=== PATIENT | female | born 1945 | race Caucasian/White ===

== ENCOUNTER 2020-08-28 10:52 | Observation (INO) | payer MEDICARE, SELFPAY ==
[2020-08-28] VITALS (8 sets, daily range): BP systolic 111–155; BP diastolic 52–87; PULSE 64–89; RESP 16–20; TEMP 36.3–36.9; O2SAT 99–100; BMI 32.8
--- NOTE | ~2020-08-28 | CT_ITS ---
EXAMINATION: CT abdomen pelvis wo con DATE: 08/28/2020 12:44 INDICATION: Kidney stone TECHNIQUE: Computed tomography (CT) of the abdomen and pelvis was performed without intravenous contr ast. Automated exposure control and iterative reconstruction technique were employed. Exam dose: 300 .35 mGy-cm total exam DLP. COMPARISON: None. FINDINGS: Status post right mastectomy. Borderline heart size. No pericardial or pleural effusion. The liver, gallbladder, spleen are unremarkable. No bile duct or pancreatic duct dilatation. There are numerous calcifications in the right upper quadrant in the lisbeth hepatis and peripancreatic and periduodenal area, which may represent calcified nodes. Some pancreatic calcifications consisten t with chronic pancreatitis are not excluded. Normal morphology of the adrenal glands. No renal space occupying mass lesion is evident on this limited noncontrast examination. No right urinary tract calculus or right-sided hydroureteronephrosis. There is mild left perinephric stranding and moderate left hydroureteronephrosis secondary to a dista l left ureteral approximately 2.6 x 4.5 mm calculus. Diverticulosis of the sigmoid and descending colon. No CT evidence of diverticulitis. The urinary bladder is evacuated, unremarkable. Status post hysterectomy. There is atherosclerotic calcification of the abdominal aorta but no aneurysm. No intraperitoneal or retroperitoneal or pelvic mass lesion or adenopathy or ascites. Hemangioma of the L2 and to a lesser extent L3 vertebral bodies. Severe degenerative disease at L5-S1. No suspicious osteolytic or osteoblastic lesions. IMPRESSION: 2.6 x 4.5 mm distal left ureteral calculus with moderate left hydroureteronephrosis Diverticulosis of the left colon; no CT evidence of diverticulitis Multiple right upper quadrant calcifications which may be calcified nodes and/or calcification to chr onic pancreatitis Status post right mastectomy Status post hysterectomy Reviewed, dictated and finalized at [facility]. Reviewed, dictated and finalized at location [facility]. 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
--- NOTE | ~2020-08-28 | XR_ITS ---
EXAMINATION: XR retrograde pyelogram LT EXAM DATE: 08/29/2020 14:55 INDICATION: Left-sided stone extraction. TECHNIQUE: Fluoroscopy used during XR retrograde pyelogram LT performed by Dr. Ar Martino MD . The DAP for this procedure was 172 radcm2. Cine run(s) available for review. FINDINGS: The left ureter was cannulated and injected. A filling defect identified in the distal asp ect of the left ureter, could be the elongated stone seen on CT from 08/28/2020. Contrast freely made at in retrograde fashion to the calyces which are unremarkable. Wire, catheter is identified in the c alyces, ureter respectively later during exam. Correlate with procedure note. IMPRESSION: Fluoroscopy used during XR retrograde pyelogram LT. Reviewed, dictated and finalized at location [facility]. 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
[2020-08-28 11:13] LABS: Basophils Absolute Auto 0.1 K/mm3 (0.0-0.1); Basophils Percent Auto 0.7 % (0.2-1.2); Eosinophils Absolute Auto 0.1 K/mm3 (0-0.3); Eosinophils Percent Auto 1.1 % (0-4.4); Hematocrit 42.6 % (37.0-47.0); Hemoglobin 14.3 g/dL (12.0-15.0); Immature Granulocyte Absolute 0.03 K/mm3 (0.00-0.031); Immature Granulocyte Percent A 0.4 % (0-0.5); Lymphocytes Absolute Auto 1.62 K/mm3 (0.9-3.2); Lymphocytes Percent Auto 22.1 % (18.3-44.2); Mean Corpuscular HGB Conc 33.6 g/dl (32-36); Mean Corpuscular Hemoglobin 31.6 pg (26-34); Mean Corpuscular Volume 94.2 fl (80-100); Mean Platelet Volume 10.5 fl (7.4-10.4); Monocytes Absolute Auto 0.8 K/mm3 (0.1-0.6); Monocytes Percent Auto 10.5 % (2.6-8.5); Neutrophils Absolute Auto 4.8 K/mm3 (1.3-6.7); Neutrophils Percent Auto 65.2 % (45.5-73.1); Platelet Count Result 165 k/mm3 (150-375); Red Blood Count 4.52 M/mm3 (4.2-5.4); Red Cell Distribution Width 13.1 % (11.5-14.5); White Blood Count 7.3 K/mm3 (4.5-10.0)
[2020-08-28 11:25] LABS: Alanine Aminotransferase 15 U/L (4-35); Albumin Level 4.3 g/dL (3.5-5.1); Alkaline Phosphatase 96 U/L (38-126); Anion Gap 8 mmol/L (8-16); Aspartate Amino Transferase 29 U/L (14-36); Bilirubin,Total 0.5 mg/dL (0.2-1.3); Blood Urea Nitrogen 18 mg/dL (7-17); Calcium 9.4 mg/dL (8.4-10.2); Carbon Dioxide 27 mmol/L (22-30); Chloride 105 mmol/L (98-107); Estimated CRCL calculation 59 ml/min; Estimated Glomerular Filt Rate > 60; Glucose 100 mg/dL (65-105); Lipase 115 U/L (23-300); Potassium 4.2 mmol/L (3.4-5.0); Sodium 140 mmol/L (137-145)
[2020-08-28 12:15] LABS: Add Urine Microscopic? YES; Appearance Urine Cloudy (Clear); Bilirubin Urine 1+ (Negative); Blood Urine 3+ (Negative); Calcium Oxalate Crystals Urine Many /hpf; Color Urine Yellow (Yellow); Glucose Urine UA Negative (Negative); Ketones Urine Negative (Negative); Leukocyte Esterase Ur Trace LEU/UL (Negative); Mucus Urine Moderate /lpf; Nitrate Urine Negative (Negative); Protein Urine 1+ mg/dL (Negative); RBC Urine >75 /hpf (0-2); Specific Grav Ur 1.025 (1.001-1.035); Squamous Epithelial Cell Urine Moderate /hpf (Few); Urobilinogen Urine Negative mg/dL (<2.0); WBC Urine 21-30 /hpf
[2020-08-28] MEDS: ONDANSETRON INJ 4 MG/2 ML VIAL IV PUSH (12:33)
[2020-08-28] MEDS: FAMOTIDINE 20 MG/2 ML VIAL IV PUSH ×2 (12:33→22:30)
[2020-08-28] MEDS: MORPHINE SULFATE (*CRX) 4 MG/ML INJ IV PUSH (13:27)
--- NOTE | 2020-08-28 14:17 | ED.GENADULT ---
HPI - General Adult General Chief complaint: Abdominal Pain Stated complaint: abd pain Time Seen by Provider: 08/28/20 12:00 Source: patient Mode of arrival: ambulatory Limitations: no limitations History of Present Illness HPI narrative: Patient is a 75-year-old female who presents with left flank pain that began over the last couple of days initially thought she had urinary symptoms with frequency urgency patient on arrival to emergency department notes that the pain increased today is a sharp stabbing pain that is intermittent in nature denies similar occurrence in the past denies any fever vomiting or other complaints at this time has not taken anything for her symptoms Related Data Home Medications Medication Instructions Recorded Confirmed methocarbamol mg 08/28/20 pravastatin 08/28/20 Allergies Allergy/AdvReac Type Severity Reaction Status Date / Time primidone Allergy Anaphylactic Verified 08/28/20 11:03 Shock Review of Systems Review of Systems: All systems reviewed & are unremarkable except as noted in HPI and below PMFSH Past Medical History Medical History (Updated 08/28/20 @ 14:22 by Prateek Finley PA-C) Hyperlipidemia Surgical History Surgical History (Updated 08/28/20 @ 14:19 by Prateek Finley PA-C) H/O hysterectomy for benign disease Social History Social History (Updated 08/28/20 @ 14:19 by Prateek Finley PA-C) Smoking status: Never smoker Exam Narrative: Exam Narrative: GENERAL: Ill-appearing, well-nourished, uncomfortable and in no acute distress. HEAD: Normocephalic, atraumatic. EYES: PERRLA and EOMI. ENT: Nares clear, no rhinorrhea or epistaxis. Mucous membranes moist. CHEST: Clear to auscultation. No respiratory distress. No wheezes rales or rhonchi HEART: Regular rate and rhythm. No murmur heard. Normal peripheral pulses. ABDOMEN: Soft, nontender, nondistended EXTREMITIES: Normal range of motion. No edema. SKIN: Warm, dry, no rash. NEURO: No focal deficits. Alert and oriented x3. PSYCH: Normal mood and affect. Course Course Emergency Course: Patient evaluated emergency department found to have urolithiasis discussion was made with urology patient will be placed in hospital overnight for plans to remove tomorrow the stone patient afebrile nontoxic-appearing still having pain despite fluids and medications also given antibiotics patient will be admitted to the hospitalist with urological consult patient otherwise in no distress Consultations Consultation #1: Discussed case with urologist who would like the patient admitted with plans to remove the stone tomorrow Rocephin for antibiotic n.p.o. at midnight Date: 08/28/20 Time: 14:21 Consultation #2: Discussed case with hospitalist who is agreed to accept the patient Date: 08/28/20 Time: 14:43 Vital Signs Vital signs: Vital Signs Temperature 97.4 F L 08/28/20 11:00 Pulse Rate 67 08/28/20 11:00 Respiratory Rate 20 08/28/20 11:00 Blood Pressure 137/87 08/28/20 11:00 Pulse Oximetry 100 08/28/20 11:00 Temperature 97.4 F L 08/28/20 13:57 Pulse Rate 70 08/28/20 13:28 Respiratory Rate 18 08/28/20 13:28 Blood Pressure 155/72 H 08/28/20 13:28 Pulse Oximetry 100 08/28/20 13:28 Medical Decision Making [facility] Narrative Medical decision making narrative: Patient will be admitted for urolithiasis Vital Signs Vital Signs: Vital Signs Temperature 97.4 F L 08/28/20 11:00 Pulse Rate 67 08/28/20 11:00 Respiratory Rate 20 08/28/20 11:00 Blood Pressure 137/87 08/28/20 11:00 Pulse Oximetry 100 08/28/20 11:00 Temperature 97.4 F L 08/28/20 13:57 Pulse Rate 70 08/28/20 13:28 Respiratory Rate 18 08/28/20 13:28 Blood Pressure 155/72 H 08/28/20 13:28 Pulse Oximetry 100 08/28/20 13:28 Lab Data Result diagrams: 08/28/20 11:08 08/28/20 11:08 Labs: Lab Results 08/28/20 08/28/20 08/28/20 Range/Units 11:08 11:08 12:02
[2020-08-28] MEDS: KETOROLAC 15 MG/ML VIAL (*BKC) 10 MG IV PUSH (14:29)
--- NOTE | 2020-08-28 17:55 | ADMGEN ---
This patient, Marybeth Whittaker, was admitted to 2 Medical Room 250-. Patient/family oriented to hospital policies and general routines including ID bracelet, bed and alarms, visiting hours, pain management, procedures, bathroom and other care routines, personal items, smoking policy, room service/diet, and visiting hours. Information on how to activate the Rapid Response Team has been discussed. Patient/Family are encouraged to report perceived risks to care and to ask questions if they do not understand what they are told or what they should do.
[2020-08-28] MEDS: LACTATED RINGERS 1,000 ML 75 ML IV CONT (20:34)
--- NOTE | 2020-08-28 23:23 | PM.IMHP ---
H&P: HPI History of Present Illness Date/Time: 08/28/20 23:23 Chief Complaint: Left flank pain Narrative: Marybeth Whittaker is a 75 year old female has no prior history of having any kidney stones. The patient has had a history of hysterectomy in the past. She developed some left flank pain yesterday. The patient said that it felt as if it was a female problem but she knew it was not because she had a hysterectomy in the past. The patient had no nausea or vomiting. The patient felt like she may have a urinary tract infection. Her pain was sharp and stabbing and intermittent. She denied any fever chills. She has cervical dystonia and receives Botox for that. Patient was positive for a UTI. She had RBCs greater than 75. Patient was started on Rocephin. CT of the abdomen was read as a 2. 6 by 4.5 mm distal left ureteral calculus with moderate left hydroureteronephrosis. Diverticulosis of the left colon no CT evidence of diverticulitis. Multiple right upper quadrant calcifications which may be calcified nodes and/or calcification of chronic pancreatitis. Status post right mastectomy. Status post hysterectomy. Urology has been consulted. The patient was given IV Tylenol, Zofran, Pepcid, morphine, Toradol, and ceftriaxone. The patient is being admitted to observation on the date of service of 08/28/2019 Review of Systems Review of Systems: All systems reviewed & are unremarkable except as noted in HPI and below Constitutional: Constitutional: Reports as per HPI and Reports no additional constitutional complaints Eyes: Eyes: Reports as per HPI and Reports no additional eye complaints ENT: Reports system reviewed and no additional complaints, except as documented and Reports Normal hearing present Cardiovascular: Cardiovascular: Reports no additional cardiovascular complaints Respiratory: Respiratory: Reports no additional respiratory complaints and Reports no additional respiratory complaints Gastrointestinal: Gastrointestinal: Reports as per HPI and Reports no additional gastrointestinal complaints Musculoskeletal: Musculoskeletal: Reports no additional musculoskeletal complaints Integumentary/Breasts: Skin/Breast: Reports system reviewed and no additional complaints, except as docu and Reports as per HPI Neurologic: Reports system reviewed and no additional complaints, except as documented, Reports as per HPI and Reports Normal hearing present Psychiatric: Psychiatric: Reports no additional psychiatric complaints and Reports as per HPI Endocrine: Endocrine: Reports no additional endocrine complaints Hematologic/Lymphatic: Hematologic/Lymphatic: Reports no additional hematologic/lymphatic complaints Allergic/Immunologic: Allergic/Immunologic: Reports no additional allergic/immunologic complaints PMFSH Past Medical History Medical History (Updated 08/28/20 @ 23:40 by Vaishali Silva NP) Diverticulosis Dystonia Cervical Hepatitis C Cleared History of removal of breast implant Hyperlipidemia Surgical History Surgical History (Updated 08/28/20 @ 23:35 by Vaishali Silva NP) H/O hysterectomy for benign disease History of 3 sections History of appendectomy History of cataract extraction History of partial knee replacement Hx of breast implant Which were subsequently removed Family History Family History Father Malignant neoplasm of prostate Throat cancer Mother Pancreatic cancer Sibling Breast cancer Social History Social History (Updated 08/28/20 @ 23:37 by Vaishali Silva NP) Social History: 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 She is . She has 3 children. Her children are her durable power recyclable materials collector for healthcare. She desires to be a full code. His lifelong nonsmoker. Does not drink alcohol or use illicit drugs. Smoking status: Never smoker Second hand tobacco sm
[2020-08-29] VITALS (15 sets, daily range): BP systolic 107–149; BP diastolic 55–76; PULSE 63–100; RESP 12–20; TEMP 36.2–37.2; O2SAT 90–100
[2020-08-29 05:09] LABS: Basophils Absolute Auto 0.1 K/mm3 (0.0-0.1); Basophils Percent Auto 0.7 % (0.2-1.2); Eosinophils Absolute Auto 0.1 K/mm3 (0-0.3); Eosinophils Percent Auto 1.3 % (0-4.4); Hematocrit 38.7 % (37.0-47.0); Hemoglobin 12.9 g/dL (12.0-15.0); Immature Granulocyte Absolute 0.03 K/mm3 (0.00-0.031); Immature Granulocyte Percent A 0.4 % (0-0.5); Lymphocytes Absolute Auto 1.57 K/mm3 (0.9-3.2); Lymphocytes Percent Auto 20.9 % (18.3-44.2); Mean Corpuscular HGB Conc 33.3 g/dl (32-36); Mean Corpuscular Hemoglobin 31.6 pg (26-34); Mean Corpuscular Volume 94.9 fl (80-100); Mean Platelet Volume 10.9 fl (7.4-10.4); Monocytes Percent Auto 12.8 % (2.6-8.5); Neutrophils Absolute Auto 4.8 K/mm3 (1.3-6.7); Neutrophils Percent Auto 63.9 % (45.5-73.1); Platelet Count Result 141 k/mm3 (150-375); Red Blood Count 4.08 M/mm3 (4.2-5.4); White Blood Count 7.5 K/mm3 (4.5-10.0)
[2020-08-29 05:24] LABS: Anion Gap 4 mmol/L (8-16); Blood Urea Nitrogen 23 mg/dL (7-17); Calcium 8.8 mg/dL (8.4-10.2); Carbon Dioxide 27 mmol/L (22-30); Chloride 108 mmol/L (98-107); Estimated CRCL calculation 34 ml/min; Estimated Glomerular Filt Rate 40; Glucose 91 mg/dL (65-105); Potassium 4.2 mmol/L (3.4-5.0); Sodium 139 mmol/L (137-145)
--- NOTE | 2020-08-29 07:59 | WPDANESEPPF ---
Anes - Initial Pre Proc Eval Procedure: Operation Date: 08/29/20 13:00 Proposed Procedures p Cystoscopy,Left Ureteroscopy With Stone Extraction - Ar Martino MD Date/Time: 08/29/20 07:59 Surgeon: Dianelys Orourke MD Pre Op Diagnosis: urolithiasis/uti Patient Data Age: 75 Gender: F Height: 1.6 m Weight: 83.9 kg Last Vital Signs Temp 36.6 C 08/29/20 05:42 Pulse 63 08/29/20 05:42 Resp 16 08/29/20 05:42 BP 107/55 L 08/29/20 05:42 Pulse Ox 97 08/29/20 05:42 Allergies Allergy/AdvReac Type Severity Reaction Status Date / Time primidone Allergy Severe Anaphylactic Verified 08/29/20 08:02 Shock Home Medications Medication Instructions Recorded Confirmed Type methocarbamol 750 mg PO DAILY 08/28/20 08/28/20 History pravastatin 40 mg PO DAILY 08/28/20 08/28/20 History Laboratory Tests 08/28/20 08/28/20 08/28/20 11:08 11:08 12:02 WBC 7.3 K/mm3 K/mm3 (4.5-10.0) RBC 4.52 M/mm3 M/mm3 (4.2-5.4) Hgb 14.3 g/dL g/dL (12.0-15.0) Hct 42.6 % % (37.0-47.0) MCV 94.2 fl fl (80-100) MCH 31.6 pg pg (26-34) MCHC 33.6 g/dl g/dl (32-36) RDW 13.1 % % (11.5-14.5) Plt Count 165 k/mm3 k/mm3 (150-375) MPV 10.5 fl H fl (7.4-10.4) Immature Gran % (Auto) 0.4 % % (0-0.5) Neut % (Auto) 65.2 % % (45.5-73.1) Lymph % (Auto) 22.1 % % (18.3-44.2) [place] % (Auto) 10.5 % H % (2.6-8.5) Eos % (Auto) 1.1 % % (0-4.4) Baso % (Auto) 0.7 % % (0.2-1.2) Lymph # (Auto) 1.62 K/mm3 K/mm3 (0.9-3.2) [place] # (Auto) 0.8 K/mm3 H K/mm3 (0.1-0.6) Eos # (Auto) 0.1 K/mm3 K/mm3 (0-0.3) Baso # (Auto) 0.1 K/mm3 K/mm3 (0.0-0.1) Abs Immat Gran (auto) 0.03 K/mm3 K/mm3 (0.00-0.031) Absolute Neuts (auto) 4.8 K/mm3 K/mm3 (1.3-6.7) Absolute Nucleated RBC 0.0 K/mm3 K/mm3 (0.0-0.012) Nucleated RBC % 0.0 % % (0.0-0.2) Sodium 140 mmol/L mmol/L (137-145) Potassium 4.2 mmol/L mmol/L (3.4-5.0) Chloride 105 mmol/L mmol/L (98-107) Carbon Dioxide 27 mmol/L mmol/L (22-30) Anion Gap 8 mmol/L mmol/L (8-16) BUN 18 mg/dL H mg/dL (7-17) Creatinine 0.70 mg/dL mg/dL (0.7-1.0) Estim Creat Clear Calc 59 ml/min ml/min Estimated GFR > 60 (59 - ) Glucose 100 mg/dL mg/dL (65-105) Calcium 9.4 mg/dL mg/dL (8.4-10.2) Total Bilirubin 0.5 mg/dL mg/dL (0.2-1.3) AST 29 U/L U/L (14-36) ALT 15 U/L U/L (4-35) Alkaline Phosphatase 96 U/L U/L (38-126) Total Protein 8.0 g/dL g/dL (6.3-8.2) Albumin 4.3 g/dL g/dL (3.5-5.1) Lipase 115 U/L U/L (23-300) Urine Color Yellow (Yellow) Urine Appearance Cloudy H (Clear) Urine pH 5.0 (5.0-9.0) Ur Specific [place] 1.025 (1.001-1.035) Urine Protein 1+ mg/dL H mg/dL (Negative) Urine Glucose (UA) Negative mg/dL mg/dL (Negative) Urine Ketones Negative mg/dL mg/dL (Negative) Ur Blood (Man) 3+ H (Negative) Urine Nitrate Negative (Negative) Urine Bilirubin 1+ H (Negative) Urine Urobilinogen Negative mg/dL mg/dL (<2.0) Leukocyte Esterase Rfl Trace MEGGAN/UL H MEGGAN/UL (Negative) Urine RBC >75 /hpf H /hpf (0-2) Urine WBC 21-30 /hpf H /hpf Ur Squamous Epith Cells Moderate /hpf H /hpf (Few) Calcium Oxalate Crystal Many /hpf /hpf (None) Urine Mucus Moderate /lpf H /lpf 08/29/20 08/29/20 04:58 04:58 WBC 7.5 K/mm3 K/mm3 (4.5-10.0) RBC 4.08 M/mm3 L M/mm3 (4.2-5.4) Hgb 12.9 g/dL g/dL (12.0-15.0) Hct 38.7 % % (37.0-47.0) MCV
--- NOTE | 2020-08-29 08:17 | WPDURCON ---
Assessment and Plan Assessment and plan (1) Left ureteral stone: Code(s): N20.1 - Calculus of ureter Status: Acute Assessment and Plan: Plan for left ureteroscopy with stone extraction today. Jay Jay understands risks of bleeding, infection, inability to move the stone, damage to the urinary tract. She agrees to proceed (2) Abnormal urinalysis: Code(s): R82.90 - Unspecified abnormal findings in urine Status: Acute Assessment and Plan: Highly contaminated epithelial cells and mucus. Clinically no signs of infection. She has been on broad-spectrum antibiotics while an inpatient. Urology Consult Note HPI Date Seen: 08/29/20 Requesting Physician: Dianelys Orourke MD Primary Care Provider: Barron Santana, Consult Narrative Narrative: Marybeth Whittaker is a 75 year old female with no prior history of stone disease. She had onset of left flank pain on Saturday. He was intermittently over the weekend. Finally on Saturday night she presented to the emergency room. She was diagnosed with a 4 mm distal left ureteral stone. She endorsed nausea without vomiting. She has no fevers. She has no chills. She has no dysuria. She has no visible blood in the urine. She has no signs of urinary tract infection. She does have an abnormal urinalysis, but it is highly contaminated. She does not clinically have an infection. She would like intervention for her stone. We discussed ureteroscopy and will proceed to this today. If all goes well she can likely be discharged home of post procedure. Review of Systems Review of Systems: All systems reviewed & are unremarkable except as noted in HPI and below PMFSH Past Medical History Medical History (Updated 08/29/20 @ 10:14 by Ar Martino MD) Diverticulosis Dystonia Cervical Hepatitis C Cleared History of removal of breast implant Hyperlipidemia Surgical History Surgical History (Updated 08/28/20 @ 23:35 by Vaishali Silva NP) H/O hysterectomy for benign disease History of 3 sections History of appendectomy History of cataract extraction History of partial knee replacement Hx of breast implant Which were subsequently removed Family History Family History Father Malignant neoplasm of prostate Throat cancer Mother Pancreatic cancer Sibling Breast cancer Social History Social History (Updated 08/28/20 @ 23:37 by Vaishali Silva NP) Social History: 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 She is . She has 3 children. Her children are her durable power deputy prosecuting attorney for healthcare. She desires to be a full code. His lifelong nonsmoker. Does not drink alcohol or use illicit drugs. Smoking status: Never smoker Second hand tobacco smoke exposure: No Alcohol intake: current Drinks per week: 1 Substance use: never Meds Home Medications and Allergies Home Medications Medication Instructions Recorded Confirmed Type methocarbamol 750 mg PO DAILY 08/28/20 08/28/20 History pravastatin 40 mg PO DAILY 08/28/20 08/28/20 History Allergies Allergy/AdvReac Type Severity Reaction Status Date / Time primidone Allergy Severe Anaphylactic Verified 08/29/20 08:02 Shock Vital Signs Vital Signs - 24 hr 08/28/20 11:00 08/28/20 13:03 08/28/20 13:28 Temperature 97.4 F L 97.4 F L Pulse Rate 67 70 Respiratory Rate 20 18 Blood Pressure 137/87 155/72 H Pulse Oximetry 100 100 08/28/20 13:57 08/28/20 14:59 08/28/20 16:49 Temperature 97.4 F L 97.4 F L Pulse Rate 89 Respiratory Rate 18 Blood Pressure 133/63 Pulse Oximetry 99 08/28/20 17:55 08/28/20 20:00 08/29/20 00:42 Temperature 98.4 F 98.1 F Pulse Rate 73 64 100 Respiratory Rate 16 16 20 Blood Pressure 142/57 H 111/52 L Pulse Oximetry 100 100 90 08/29/20 02:00 08/29/20 04:00 08/29/20 05:42 Temper
[2020-08-29] MEDS: FAMOTIDINE 20 MG/2 ML VIAL IV PUSH (09:01)
[2020-08-29] MEDS: LACTATED RINGERS 1,000 ML 75 ML IV CONT (09:14)
[2020-08-29] MEDS: methocarbamoL 750 MG TABLET PO (09:29)
--- NOTE | 2020-08-29 10:19 | WPDHPUPDATE1 ---
History and Physical Update Update Date/Time: 08/29/20 10:19 History and Physical has been reviewed, including an updated exam of the patient. There are NO changes in the patient's condition. Risks, benefits, and alternatives have been discussed and questions answered. Patient agrees to proceed with procedure.
--- NOTE | 2020-08-29 11:00 | PC.NURSE ---
Report called to [place] RN Preop.
--- NOTE | 2020-08-29 13:03 | PC.NURSE ---
To OR via bed. Voiding.Bedside report given to Martin KNAPP preop.
[2020-08-29] MEDS: LACTATED RINGERS 1,000 ML 30 ML IV CONT (13:32)
[2020-08-29] MEDS: LIDOCAINE HCL 2% GEL UROJET 10 ML PKG MUCOUS MEM (14:47)
--- NOTE | 2020-08-29 14:56 | P.OP_ITS ---
Procedure Note - Detailed Date of procedure: 08/29/20 Pre-op diagnosis: urolithiasis/uti Left distal ureteral stone Post-op diagnosis: same Procedure performed: Cystoscopy, left retrograde pyelogram, left ureteroscopy with stone extraction Description of procedure: She was correctly identified. Informed consent obtained. She from the operating room. She was given general anesthesia. She was prepped and draped in a sterile fashion. She was placed in dorsal lithotomy position. She was already on antibiotics. Cystoscopy revealed a normal appearing bladder. I did a retrograde pyelogram on the left. There is a distal stone present. There is a mild proximal hydronephrosis. I placed a guidewire to the kidney. I dilated the ureter with the 8 dilator. I performed ureteroscopy. The stone was encountered. It was extracted with the basket. I reperformed ureteroscopy up to the mid ureter. There is no other stones. There is minimal irritation of the ureter. I elected to not leave ureteral stent. Bl adder was drained. She was awakened and transferred to PACU in stable condition. Anesthesia: GLMA Surgeon: Ar Martino MD Estimated blood loss (mL): 0 Drains: No Packing: No Pathology: yes (Stone) Complications: No immediate complications Condition: stable Disposition: PACU
--- NOTE | 2020-08-29 15:59 | PC.NURSE ---
Returned from OR via bed. Voiding without difficulty.
--- NOTE | 2020-08-29 16:43 | PM.IMPN ---
Progress Note: A&P Assessment and Plan (1) Left ureteral stone: Code(s): N20.1 - Calculus of ureter Status: Acute Assessment and Plan: S/p retrieval by Urology Appreciate Urology note (2) UTI (urinary tract infection): Code(s): N39.0 - Urinary tract infection, site not specified Status: Acute Assessment and Plan: Continue Rocephine. (3) Dystonia: Code(s): G24.9 - Dystonia, unspecified Status: Chronic Assessment and Plan: On Methocarbamol Follow up in the outpatient setting. Subjective Date/time seen: 08/29/20 16:43 I feel fine my pain is well controlled Review of Systems Review of Systems: Narrative: nephritic colic. Constitutional: Comments: no fevers, no rigors, no chills. ENT: Comments: no nasal congestion. Cardiovascular: Comments: no chest pain, no pnd, no orthopnea. Respiratory: Comments: no sob, no cough. Gastrointestinal: Comments: no n/v/diarrhea Musculoskeletal: Comments: no joint pain. Integumentary/Breasts: Comments: no rashes Neurologic: Comments: neck dystonia. Exam Narrative: Exam Narrative: Sitting in bed. Const: General: comfortable, no acute distress, alert and Physically active Nutritional Appearance: well nourished Orientation/consciousness: patient oriented x3 HENMT: Head: normal to inspection and normocephalic Ears: hearing grossly normal bilaterally General nose exam: Normal external nose present Face and sinus: normal facial exam Eyes: General: appearance normal, both eyes and all related structures Pupils: Equal, round and reactive pupils present EOM: EOMs intact bilaterally Neck: Neck: no lymphadenopathy, supple and no JVD Resp: Auscultation: clear to auscultation bilaterally Cardio: Jugular venous distension: no JVD Rate: regular rate Rhythm: regular rhythm GI: GI Palp: Yes Soft to palpation and Yes No hepatosplenomegaly present Skin: Rashes: no rashes Neuro: General: patient oriented x3 and CN's II-XI intact bilaterally Cranial nerves: Yes CN's II-XII intact bilaterally, Yes Equal, round and reactive pupils present and Yes Other cranial nerve findings present (neck dystonia.) Cognition (Neuro): normal cognition Speech: normal speech Motor exam (neuro): 5/5 motor strength present throughout Extrem: General: no pedal edema Objective Data Vital Signs Vital Signs: Vital Signs - 24 hr 08/28/20 16:49 08/28/20 17:55 08/28/20 20:00 Temperature 98.4 F 98.1 F Pulse Rate 89 73 64 Respiratory Rate 18 16 16 Blood Pressure 133/63 142/57 H 111/52 L Pulse Oximetry 99 100 100 08/29/20 00:42 08/29/20 02:00 08/29/20 04:00 Temperature 97.1 F L 97.9 F Pulse Rate 100 77 63 Respiratory Rate 20 18 16 Blood Pressure 133/58 L 107/55 L Pulse Oximetry 90 98 97 08/29/20 05:42 08/29/20 09:14 08/29/20 10:00 Temperature 97.9 F 98.1 F Pulse Rate 63 63 Respiratory Rate 16 16 14 Blood Pressure 107/55 L 134/60 Pulse Oximetry 97 98 100 08/29/20 13:19 08/29/20 14:51 08/29/20 15:00 Temperature 99.0 F 98.8 F Pulse Rate 71 77 68 Respiratory Rate 16 12 14 Blood Pressure 142/57 H 132/61 147/65 H Pulse Oximetry 100 100 99 08/29/20 15:15 08/29/20 15:30 08/29/20 15:45 Temperature Pulse Rate 72 71 71 Respiratory Rate 14 15 12 Blood Pressure 149/76 H 142/68 H 146/64 H Pulse Oximetry 96 94 95 Intake/Output Intake/Output: Intake & Output 08/26/20 08/27/20 08/28/20 08/29/20 23:59 23:59 23:59 23:59 Intake Total 150 1650 Output Total 500 Balance 150 1150 Meds/Results Medications: Active Medications Generic Name Dose Route Start Last Admin Trade Name Freq PRN Reason Stop Dose Admin Famotidine 20 mg 08/28/20 21:00 08/29/20 09:01 Famotidine 20 Mg/2 Ml Vial IV PUSH 20 mg Q12HR DIMAS Administration Hydromorphone HCl 0.25 mg 08/29/20 07:58 Hydromorphone Hcl Inj (*Crx) 1 Mg/Ml Syr IV PUSH Q5M PRN Pain Ceftriaxone Sodium/Dextrose 1 gm in 50 mls @
[2020-08-29] MEDS: oxyCODONE HCL (*CRX) 5 MG TAB IR PO (18:15)
--- NOTE | 2020-09-03 09:40 | PM.DS ---
DS: Admitting Diagnosis Admitting Diagnosis Admitting Diagnosis: ureteral stone DS: Discharge Diagnosis Discharge Diagnosis (1) Abnormal urinalysis: Code(s): R82.90 - Unspecified abnormal findings in urine Status: Acute (2) Left ureteral stone: Code(s): N20.1 - Calculus of ureter Status: Acute DS: Summary Hospital Course Hospital Course: Went to the operating room for uncomplicated stone procedure Time Spent with Patient Time attestation: Total time spent providing and/or coordinating discharge services: Exam Const: General: cooperative and healthy appearing HENMT: Head: normal to inspection Resp: Effort & Inspection: normal respiratory effort Skin: General skin exam: normal color Extrem: General: normal to inspection DS: Data Data Completed and Pending Completed studies during hospitalization: Pending at discharge 08/29/20 14:43 Surgical [PTH] Routine Labs on day of discharge: Preliminary micro results at discharge 08/29/20 00:58 Blood Culture - Preliminary Blood 08/29/20 00:58 Blood Culture - Preliminary Blood Discharge Plan Discharge Consulting providers: Prateek Finley ; Ar Martino ; Siva Mccabe ; Vaishali Silva ; Gianni Roe ; Aki Jerome V. ; Carlos Espinoza Discharging Clinician: huyen Anticipated Discharge Date/Time: 08/29/20 14:53 Patient Disposition: Home, Self-Care Activity: october shower Diet: as tolerated Patient Instructions: Antibiotic Form Stand Alone Forms: General Discharge Information Follow-up/Referrals: Ar Martino MD [Physician] - (3 months [phone]) Discharge Medications: New hydrocodone-acetaminophen 5-325 mg tablet 1 tablet PO Q4H PRN (Reason: pain) Qty: 20 RF: 0 sulfamethoxazole-trimethoprim [Bactrim DS] 800-160 mg tablet 1 tablet PO Q12H Qty: 10 RF: 0 Continued pravastatin 40 mg tablet 40 mg PO DAILY RF: 0 methocarbamol 750 mg tablet 750 mg PO DAILY RF: 0 Date of admission: 08/28/20 14:43 Primary Care Provider: MaxBarron Admitting Provider: Dianelys Orourke Attending physician on admission: Ar Martino Condition: Improved Quality VTE Prophylaxis VTE prophylaxis: mechanical ordered
--- NOTE | 2020-10-15 15:50 | PM.DS ---
DS: Admitting Diagnosis Admitting Diagnosis Admitting Diagnosis: (1) UTI (urinary tract infection): (2) Urolithiasis: (3) Dystonia: (4) Hyperlipidemia: (5) Diverticulosis: DS: Discharge Diagnosis Discharge Diagnosis (1) Left ureteral stone: Code(s): N20.1 - Calculus of ureter Status: Acute Assessment and Plan: status post cystoscopy with stone extraction (2) Urolithiasis: Code(s): N20.9 - Urinary calculus, unspecified Status: Acute Assessment and Plan: Patient is status post cystoscopy with stone extraction by Urology (3) Abnormal urinalysis: Code(s): R82.90 - Unspecified abnormal findings in urine Status: Acute Assessment and Plan: The patient had normal urine analysis however urinalysis culture was normal (4) UTI (urinary tract infection): Code(s): N39.0 - Urinary tract infection, site not specified Status: Acute Assessment and Plan: Patient was started on antibiotics which were discontinued once urine analysis micro came back as normal (5) Diverticulosis: Code(s): K57.90 - Diverticulosis of intestine, part unspecified, without perforation or abscess without bleeding Status: Chronic Assessment and Plan: Unchanged (6) Hyperlipidemia: Code(s): E78.5 - Hyperlipidemia, unspecified Status: Chronic Assessment and Plan: Unchanged (7) Dystonia: Code(s): G24.9 - Dystonia, unspecified Status: Chronic Assessment and Plan: Unchanged DS: Summary Hospital Course Hospital Course: This is a 75-year-old female with past medical history significant for nephrolithiasis patient presented to emergency room due to abdominal pain she was found to have a kidney stone and urinary tract infection. Urinalysis culture did not grow is significant amount of colonies. Patient had no complications, no events. The patient was discharged home. Patient was admitted to general medical floor and was placed on antibiotics. Consult: Urology Procedures performed: Cystoscopy, left retrograde pyelogram, left ureteroscopy with stone extraction Status at Discharge Cognitive/behavioral status at discharge: AAOX3 Overall status at discharge: patient is back to baseline Time Spent with Patient Time attestation: Total time spent providing and/or coordinating discharge services: Exam Narrative: Exam Narrative: Patient is lying in bed Const: General: comfortable, no acute distress, well developed, alert and awake Nutritional Appearance: average body habitus Orientation/consciousness: patient oriented x3 HENMT: Head: normal to inspection, normocephalic and atraumatic Ears: hearing grossly normal bilaterally Face and sinus: normal facial exam Eyes: General: appearance normal, both eyes and all related structures Pupils: Equal, round and reactive pupils present EOM: EOMs intact bilaterally Neck: Neck: full ROM, no lymphadenopathy and no JVD Thyroid: thyroid normal Lymphatic: no lymphadenopathy noted Resp: Effort & Inspection: normal respiratory effort and able to speak in complete sentences Auscultation: clear to auscultation bilaterally Cardio: Jugular venous distension: no JVD Rate: regular rate Rhythm: regular rhythm Heart sounds: S1 normal heart sound present and S2 normal heart sound present GI: GI Palp: Yes Soft to palpation and Yes No hepatosplenomegaly present : General: Yes deferred Skin: Rashes: no rashes Wounds: no wounds Neuro: General: patient oriented x3, CN's II-XI intact bilaterally and other (Hand tremors) Cranial nerves: Yes CN's II-XII intact bilaterally and Yes Equal, round and reactive pupils present Cognition (Neuro): normal cognition Speech: normal speech Gait exam (Neuro): Normal gait present Motor exam (neuro): 5/5 motor strength present throughout Extrem: General: normal to inspection, full ROM, no joint enlargement and no pedal teagan
== END 2020-08-29 18:25 | disposition home or self-care (01) ==
LOC: ANHED 15:11 → ANH2MED 08-29 07:48
PROVIDERS: Emergency Medicine Emergency Medical Services; Admitting Provider Family Medicine; Emergency Provider Emergency Medicine; PCP Internal Medicine; Visit Provider Urology
PROC: (CPT 52352; principal; 2020-08-29 13:00)
DX: N20.1 Calculus of ureter (principal); N13.39 Other hydronephrosis; N39.0 Urinary tract infection, site not specified; K57.90 Diverticulosis of intestine, part unspecified, without perforation or abscess without bleeding; E78.5 Hyperlipidemia, unspecified; G24.9 Dystonia, unspecified
CPT/HCPCS: 52332; 52352; 36415; 74176; 74420; 80048; 80053; 81001; 82365; 83690; 85025; 87040; 87086; 88300; 96361; 96365; 96375; 96376; 99285; A9270; C1769; G0378; J0131; J0696; J1100; J1885; J2270; J2405; J2704; J3010; J7120; Q9966

== ENCOUNTER 2020-12-13 10:44 | Outpatient (CLI) | payer MEDICARE, SELFPAY ==
--- NOTE | ~2020-12-13 | XR_ITS ---
XR abdomen/kub 1V DATE: 12/13/2020 11:05 INDICATION: Lithotripsy 1 month ago for kidney stones TECHNIQUE: AP projection, 2 views COMPARISON: 08/29/2020 left retrograde pyelogram 08/28/2020 CT abdomen pelvis FINDINGS: Multiple soft tissue calcifications are again noted overlying the right upper quadrant, lyi ng outside the kidney based upon review of numerous CT abdomen pelvis examination. Cannot exclude residual linear faintly calcified distal left ureteral calculus. More definitive exami nation can be obtained by noncontrast CT abdomen pelvis. Otherwise no urinary tract calcification is noted. The psoas shadows are intact. No visceromegaly is evident. The bowel gas pattern is unremarkable, wit hout evidence of obstruction. IMPRESSION: Cannot exclude distal left ureteral calcified calculus; noncontrast CT abdomen pelvis wou ld be more definitive Reviewed, dictated and finalized at [facility]. Reviewed, dictated and finalized at [facility]. IMPRESSION: Cannot exclude distal left ureteral calcified calculus; noncontrast CT abdomen pelvis would be more definitive
== END 2020-12-13 10:45 | disposition home or self-care (01) ==
LOC: ANHIMG 10:48
PROVIDERS: PCP Internal Medicine; Visit Provider Urology
DX: Z87.442 Personal history of urinary calculi (principal)
CPT/HCPCS: 74018

== ENCOUNTER 2022-01-30 10:47 | Outpatient (CLI) | payer MEDICARE, SELFPAY ==
--- NOTE | ~2022-01-30 | XR_ITS ---
EXAM: XR abdomen/kub 1V DATE: 01/30/2022 11:29 HISTORY: HX OF KIDNEY STONES 1 YEAR AGO F/U NO SYMPTOMS NOW . COMPARISON: 12/13/2020. FINDINGS: Clear lung bases. Normal bowel gas pattern. No organomegaly. Stable extrarenal right upper quadrant calcifications. Degenerative change in lumbar spine and bilateral hips. IMPRESSION: No radiographic evidence of urolithiasis. Reviewed, dictated and finalized at [facility].
== END 2022-01-30 10:48 | disposition home or self-care (01) ==
PROVIDERS: Visit Provider Urology
DX: Z87.442 Personal history of urinary calculi (principal)
CPT/HCPCS: 74018

== ENCOUNTER 2022-03-20 17:10 | Outpatient (CLI) | payer MEDICARE, SELFPAY ==
--- NOTE | ~2022-03-20 | XR_ITS ---
XR sacroiliac joints min 3V DATE: 03/20/2022 17:50 INDICATION: Fall on March 16. Tailbone pain. TECHNIQUE: AP and bilateral oblique views COMPARISON: August 28, 2020 CT abdomen pelvis FINDINGS: There is severe degenerative disc disease at L5-S1, moderate degenerative disc disease at L 4-5. Pubic symphysis and sacroiliac joints are intact. No erosive change or ankylosis at the sacroiliac reba ints. No sacral or coccygeal fracture is evident on this sacroiliac examination. IMPRESSION: No fracture detected Reviewed, dictated and finalized at [facility]. Reviewed, dictated and finalized at [facility]. IMPRESSION: No fracture detected
== END 2022-03-20 17:11 | disposition home or self-care (01) ==
DX: M79.10 Myalgia, unspecified site (principal)
CPT/HCPCS: 72202

== ENCOUNTER 2022-12-31 08:00 | Outpatient (RCR) | payer MEDICARE, SELFPAY ==
--- NOTE | 2022-11-08 11:04 | PTOPEVAL1 ---
Assessment and note entered by Best Lindsay, PT Evaluation Information Assessment Status Evaluation Diagnosis DDD lumbar region Subjective Information Patient reports having some occasional back pain. It is not radiating. She reports she is fairly active. Currently in no pain. Worse after inactivity. Will take IBU if the pain gets real bad, which is a 3/10. Assessment PT Clinical Summary Marybeth is a 77 year old female coming into the clinic with a diagnosis of DDD of the lumbar region. She has no radiating symptoms and negative special tests. Patient presents with normal lumbar range of motion and 5/5 strength besides hip extension and hip abduction. Physical therapy will work on stretching out the lower back and strengthening the noted hip weakness. Modalities and manual therapy if needed for pain. Plan of Care Interventions Electrical Stimulation,Gait Training,Hot Pack/Cold Pack,Manual Therapy,Neuro Re-education,Patient/ Caregiver Education,Therapeutic Activities, Therapeutic Exercise,Ultrasound Other Interventions cupping, taping, IASTM PT Services Indicated Yes Treatment Frequency and 1-2x/wk for 4 weeks Duration These treatments will address the objective and functional deficits as defined above. The patient will be advanced safely and appropriately in order for the patient to progress towards his/her prior level of function. Additional exercises will be introduced and as well as a comprehensive home exercise program upon discharge, if needed, ?to ensure carryover of functional gains achieved in the clinic. This treatment plan has been reviewed and agreement upon by the patient.
--- NOTE | 2022-12-03 13:12 | PTOPPROG ---
Assessment and note entered by Best Lindsay, PT Evaluation Information Assessment Status Progress Diagnosis lumbar DDD Subjective Information Patient reports she is feeling less pain and can feel more strength in her legs, not needing the handrails as much when going down steps. Patient does feel like she can get stronger. Assessment PT Clinical Summary Marybeth is a 77 year old female coming into the clinic with a diagnosis of Lumbar DDD. She was evaluated on 11/05/22 and has attended 5 sessions. She has met her pain goal, but not her strengthening goal. Recommend continued therapy to improve strength to increase chance of pain staying away. Plan of Care Interventions Electrical Stimulation,Gait Training,Hot Pack/Cold Pack,Manual Therapy,Neuro Re-education,Patient/ Caregiver Education,Therapeutic Activities, Therapeutic Exercise,Ultrasound Other Interventions cupping, taping, IASTM PT Services Indicated Yes Treatment Frequency and 1x/wk for 4 weeks Duration These treatments will address the objective and functional deficits as defined above. The patient will be advanced safely and appropriately in order for the patient to progress towards his/her prior level of function. Additional exercises will be introduced and as well as a comprehensive home exercise program upon discharge, if needed, ?to ensure carryover of functional gains achieved in the clinic. This treatment plan has been reviewed and agreement upon by the patient.
--- NOTE | 2022-12-31 09:30 | PTOPDC ---
Assessment and note entered by Best Lindsay, PT Evaluation Information Assessment Status Discharge Diagnosis lumbar DDD Subjective Information Patient reports not really having pain in this last weekend except when sitting over her sewing machine too much. Patient states she has faithfully been doing her HEP and feels safe with being discharged with HEP. Reported Pain Level Pain Score 0: Self Report Assessment PT Clinical Summary Marybeth is a 77 year old female coming into the clinic with a diagnosis of lumbar DDD. She was evaluated on 11/05/22. She has attended 9 visits and has met all goals. Patient discharged to home with home exercise program. Plan of Care PT Services Indicated No
== END 2023-01-02 12:25 | disposition home or self-care (01) ==
LOC: ANHPT 08:00
DX: M51.36 Other intervertebral disc degeneration, lumbar region (principal)
CPT/HCPCS: 97110; 97112; 97161; 97530

== ENCOUNTER 2024-01-21 16:42 | Emergency (ER) | payer MEDICARE, SELFPAY ==
--- NOTE | ~2024-01-21 | XR_ITS ---
EXAMINATION: XR chest 1V portable Exam Date/Time: 01/21/2024 17:04 CDT HISTORY: chest pain. COVID DX X1 DAY Comparison: 02/06/2013. RESULT: Lines, tubes, and devices: None. Lungs and pleura: Senescent changes. Right upper lung calcified granuloma. Cardiomediastinal silhouette: Stable. Other: No acute osseous or upper abdominal finding. IMPRESSION: No acute cardiopulmonary process. Reviewed, dictated and finalized at location [facility].
--- NOTE | ~2024-01-21 | CT_ITS ---
EXAMINATION: CTA chest PE protocol DATE: 01/21/2024 18:10 INDICATION: covid +, cp/back pain, r/o PE TECHNIQUE: Computed tomography angiography (CTA) of the chest was performed with 100 mL Omnipaque-350 intravenous contrast timed to evaluate the pulmonary arteries. Coronal maximum intensity projection 3D-reconstructions were created by the technologist. The dose-length product (DLP) was 306.62 mGy-cm. Automated exposure control and iterative reconstruction technique were employed. COMPARISON: X-ray chest, same date. FINDINGS: Lung parenchyma and airways: Clear. Pleura: Unremarkable. Thoracic inlet, axillae and chest wall: Unremarkable. Thoracic aorta: No significant dilation. No dissection. Mediastinum: Dilated central pulmonary arteries as can be seen with pulmonary arterial hypertension. Heart and pericardium: Mild cardiomegaly.. Coronary artery calcifications: Mild. Upper abdomen: No significant finding. Calcified lisbeth hepatic lymph nodes. Bones: No acute osseous finding. Pulmonary arteries: Study quality: Mild cardiac motion artifact, quantum mottle, and beam hardening f rom arm down positioning, overall diagnostic. No pulmonary emboli detected. IMPRESSION: No CT evidence of acute pulmonary embolus. No acute process detected in the chest. Reviewed, dictated and finalized at location K.
--- NOTE | 2024-01-21 16:43 | ECG_ITS ---
Test Date: 2024-01-21 16:48:46 Measurements Intervals [place] Rate: 90 P: 59 TN: 159 QRS: -28 QRSD: 101 T: 64 QT: 337 QTc: 413 Interpretive Statements SINUS RHYTHM POSSIBLE LEFT ATRIAL ENLARGEMENT DELAYED PRECORDIAL R/S TRANSITION INFERIOR INFARCT, AGE INDETERMINATE BORDERLINE ST-T WAVE ABNORMALITY- HIGH LATERAL LEADS BASELINE ARTIFACT- I, II, III, AVL, AVF ABNORMAL ECG No previous ECG available for comparison Electronically Signed On 01-21-2024 19:23:26 CDT by Brayden Meredith D.O.
[2024-01-21 16:45] VITALS: BP 155/68; PULSE 88; RESP 16; TEMP 36.9; O2SAT 100
[2024-01-21 17:11] LABS: Basophils Absolute Auto 0.1 K/mm3 (0.0-0.1); Eosinophils Absolute Auto 0.1 K/mm3 (0-0.3); Hematocrit 37.9 % (37.0-47.0); Hemoglobin 12.5 g/dL (12.0-15.0); Immature Granulocyte Absolute 0.05 K/mm3 (0.00-0.031); Immature Granulocyte Percent A 0.8 % (0-0.5); Immature Platelet Fraction Pct 4.4 % (0.9-11.2); Lymphocytes Absolute Auto 0.74 K/mm3 (0.9-3.2); Lymphocytes Percent Auto 12.5 % (18.3-44.2); Mean Corpuscular Hemoglobin 31.7 pg (26-34); Mean Corpuscular Volume 96.2 fl (80-100); Mean Platelet Volume 10.8 fl (7.4-10.4); Monocytes Absolute Auto 1.2 K/mm3 (0.1-0.6); Monocytes Percent Auto 20.5 % (2.6-8.5); Neutrophils Absolute Auto 3.8 K/mm3 (1.3-6.7); Neutrophils Percent Auto 64.2 % (45.5-73.1); Platelet Count Result 107 k/mm3 (150-375); Red Blood Count 3.94 M/mm3 (4.2-5.4); Red Cell Distribution Width 13.6 % (11.5-14.5); White Blood Count 5.9 K/mm3 (4.5-10.0)
[2024-01-21 17:18] LABS: INR 1.1
[2024-01-21 17:19] LABS: Partial Thromboplastin Time 27.6 Seconds (22.3-36.8)
[2024-01-21 17:20] LABS: Alanine Aminotransferase 16 U/L (6-35); Albumin Level 4.6 g/dL (3.5-5.1); Alkaline Phosphatase 90 U/L (38-126); Anion Gap 10 mmol/L (4-12); Aspartate Amino Transferase 27 U/L (14-36); Bilirubin,Total 0.4 mg/dL (0.2-1.3); Blood Urea Nitrogen 18 mg/dL (7-17); Calcium 9.1 mg/dL (8.4-10.2); Carbon Dioxide 25 mmol/L (22-30); Chloride 102 mmol/L (98-107); Estimated Glomerular Filt Rate > 60; Glucose 102 mg/dL (65-110); Lipase 127 U/L (23-300); Potassium 3.9 mmol/L (3.4-5.0); Sodium 137 mmol/L (137-145)
--- NOTE | 2024-01-21 17:26 | ED.CHESTPAIN ---
HPI - Chest Pain General Chief Complaint: Chest Pain Stated Complaint: chest pain Time Seen by Provider: 01/21/24 16:58 Source: patient Mode of arrival: ambulatory Limitations: no limitations History of Present Illness HPI narrative: Patient is a 78-year-old female who presents the ED with report of chest pain. Patient reports she began feeling ill last night with cough, rhinorrhea, chills, subjective fever, myalgias. She took a home COVID test this morning which was positive. Saw her primary care doctor today and was prescribed Lagevrio (Molnupiravir). She states around 3:30 p.m. today while she was sitting down, she began having pain throughout her right-sided chest. Pain radiated through to her back and up to her jaw. She states pain lasted a few minutes at a time and occurred intermittently over 1 hour. She then prompted here for further evaluation. Denied aggravation with exertion. Denies shortness of breath or pleuritic pain. Denies hemoptysis. Denies lower extremity pain or swelling. Denies previous history of CAD or blood clots. Denies current pain. Related Data Home Medications Medication Instructions Recorded Confirmed methocarbamol 750 mg tablet 750 mg PO DAILY 08/28/20 08/28/20 pravastatin 40 mg tablet 40 mg PO DAILY 08/28/20 08/28/20 Allergies Allergy/AdvReac Type Severity Reaction Status Date / Time primidone Allergy Severe Anaphylactic Verified 08/29/20 08:02 Shock Review of Systems Review of Systems: CONSTITUTIONAL: Reports subjective fevers. ENT: See HPI. CARDIOVASCULAR: See HPI. RESPIRATORY: See HPI. GASTROINTESTINAL: Denies abdominal pain, nausea, vomiting. MUSCULOSKELETAL: Reports myalgia. NEUROLOGIC: Denies headache, dizziness, numbness, or weakness. All systems reviewed & are unremarkable except as noted in HPI and below PMFSH Past Medical History Medical History Diverticulosis Dystonia Cervical Hepatitis C Cleared History of removal of breast implant Hyperlipidemia Surgical History Surgical History H/O hysterectomy for benign disease History of 3 sections History of appendectomy History of cataract extraction History of partial knee replacement Hx of breast implant Which were subsequently removed Family History Family History Father Malignant neoplasm of prostate Throat cancer Mother Pancreatic cancer Sibling Breast cancer Social History Social History Social History: 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 She is . She has 3 children. Her children are her durable power staff attorney for healthcare. She desires to be a full code. His lifelong nonsmoker. Does not drink alcohol or use illicit drugs. Smoking status: Never smoker Second hand tobacco smoke exposure: No Alcohol intake: current Drinks per week: 1 Substance use: never Exam Narrative: GENERAL: Elderly, well-nourished, non-toxic, in no acute distress. HEAD: Normocephalic, atraumatic. RESPIRATORY: Airway patent, respirations nonlabored. Clear to auscultation bilaterally, no rales, rhonchi, wheezing. No focal lung sounds. No splinting/pain with inspiration. Occasional coughing. CARDIOVASCULAR: Regular rate and rhythm without murmurs, rubs, or gallops. ABDOMINAL: Soft, nontender, nondistended. Normoactive BS. MUSCULOSKELETAL: Moves all extremities. No gross deformities. No edema. No calf tenderness. No chest wall tenderness to palpation. SKIN: Warm, dry, normal color. NEURO: A&O X3. Speech clear. Cranial nerves II-XII grossly intact. Steady gait. Tremor of head and upper extremities. PSYCHIATRIC: Appropriate mood and affect. Normal interaction. Course Vital Signs Vital
[2024-01-21 17:30] VITALS: BP 144/59; PULSE 84; RESP 20; O2SAT 100
[2024-01-21 17:32] LABS: Troponin I < 0.012 ng/mL (0.000-0.034)
[2024-01-21] MEDS: ASPIRIN 81 MG CHEWABLE TABLET 324 MG PO (18:09)
[2024-01-21 18:10] VITALS: BP 151/60; PULSE 90; RESP 20; O2SAT 100
[2024-01-21 18:12] LABS: NT Pro B Type Natriuretic Pept 336 pg/mL (19.9-100)
[2024-01-21 19:26] VITALS: BP 139/60; PULSE 85; RESP 20; O2SAT 96
[2024-01-21 20:48] LABS: Troponin I < 0.012 ng/mL (0.000-0.034)
== END 2024-01-21 21:55 | disposition home or self-care (01) ==
PROVIDERS: Emergency Medicine; Emergency Provider Physician Assistant
DX: U07.1 COVID-19 (principal); R07.89 Other chest pain; E78.5 Hyperlipidemia, unspecified; Z96.659 Presence of unspecified artificial knee joint; Z86.19 Personal history of other infectious and parasitic diseases; Z90.710 Acquired absence of both cervix and uterus; Z98.49 Cataract extraction status, unspecified eye; R94.31 Abnormal electrocardiogram [ECG] [EKG]
CPT/HCPCS: 36415; 71045; 71275; 80053; 83690; 83880; 84484; 85025; 85055; 85610; 85730; 93005; 99284; A9270; Q9967

== ENCOUNTER 2024-02-11 13:30 | Outpatient (RCR) | payer MEDICARE, SELFPAY ==
--- NOTE | 2024-01-16 16:45 | OPREHPOC ---
Outpatient Therapy Plan of Care This is a Multidisciplinary Plan of Care that may contain components documented by all disciplines (PT, OT, and ST.) PT Problem 1 PT Problem #1 Knowledge Deficit PT Goal 1 Goal [place] with HEP PT Problem 2 PT Problem #2 Impaired Range of Motion PT Goal 1 Goal Improve R knee flexion ROM to 110+ degrees Target Visit 8 PT Problem 3 PT Problem #3 Impaired Gait PT Goal 1 Goal Ambulate with even stride length bilaterally Target Visit 8 PT Problem 4 PT Problem #4 Impaired Strength PT Goal 1 Goal Improve judy hip abduction strength to 4/5 to improve lateral stability with ADLs Target Visit 10 PT Goal 2 Goal Improve R knee gross strength to 5/5 for stability with gait and ADLs Target Visit 8
--- NOTE | 2024-01-16 16:45 | PTOPEVAL1 ---
Assessment and note entered by Vic Garcia, PT Evaluation Information Assessment Status Evaluation Diagnosis Post operative TKA Right LE Onset 10/30/23 Subjective Information Reports that he has done therapy but was not making the progress that she felt she needed to make. She has been having some trouble with walking distances. Denies the presence of pain from knee but she has achiness from infusions for osteoporosis. She is having most of her problems with stairs and clearing her leg on and off of the bike. She would really like to work on her balance moving forward for shelter progress. She has had 7 therapy visits so far. Reported Pain Level Pain Score 0: Self Report Assessment PT Clinical Summary Patient presents with gross sub-acute loss of knee ROM, altered gait, and hip weakness at this time affecting gross ambulation and functional balance. Patient will benefit form skilled therapy to address these deficits for shelter functional mobility, pain relief. and ADL performance. Plan of Care Interventions Gait Training,Intermittent Compression,Manual Therapy,Neuro Re-education,Therapeutic Activities, Therapeutic Exercise PT Services Indicated Yes Treatment Frequency and 2x/week for 8 visits Duration These treatments will address the objective and functional deficits as defined above. The patient will be advanced safely and appropriately in order for the patient to progress towards his/her prior level of function. Additional exercises will be introduced and as well as a comprehensive home exercise program upon discharge, if needed, ?to ensure carryover of functional gains achieved in the clinic. This treatment plan has been reviewed and agreement upon by the patient.
--- NOTE | 2024-02-11 14:04 | PTOPDC ---
Assessment and note entered by Vic Garcia, PT Evaluation Information Assessment Status Discharge Diagnosis Post operative TKA Right LE Onset 10/30/23 Subjective Information Overall patient reports that she is feeling good and feels she has hit all of her personal goals for therapy at this time. No concerns moving forward with [facility]. Reported Pain Level Pain Score 0: Self Report Assessment PT Clinical Summary Patient has met all goals for therapy and is suitable for discharge to [facility] at this time. Patient knee ROM equal to non involved side and stride is greatly improved. Plan of Care PT Services Indicated Yes
== END 2024-02-11 15:20 | disposition home or self-care (01) ==
LOC: ANHPT 13:30
DX: M25.561 Pain in right knee (principal); G89.29 Other chronic pain
CPT/HCPCS: 97110; 97140; 97161; 97530

== ENCOUNTER 2024-03-12 11:22 | Outpatient (CLI) | payer MEDICARE, SELFPAY ==
--- NOTE | ~2024-03-12 | XR_ITS ---
XR abdomen/kub 1V Ordering provider: Ar Martino MD History: . RIGHT KIDNEY STONE FU . Comparison: December 04, 2022 FINDINGS: BOWEL: Nonobstructive bowel gas pattern. ORGANOMEGALY: None. SIGNIFICANT PATHOLOGIC CALCIFICATIONS: Calcification is seen to the right of the spine opposite the u pper pole of the kidney which may be a stone although less likely. No change from previous examinatio n. Fecal material is overlapping the right kidney. OTHER: No free air is seen under the diaphragm. Degenerative the spine. IMPRESSION: NO ACUTE ABDOMINAL FINDINGS. Calcification in the right paraspinal area unchanged from previous examination. Reviewed, dictated and finalized at location A.
== END 2024-03-12 11:23 | disposition home or self-care (01) ==
PROVIDERS: Visit Provider Urology
DX: N20.0 Calculus of kidney (principal)
CPT/HCPCS: 74018

== ENCOUNTER 2025-03-09 10:29 | Outpatient (CLI) | payer MEDICARE, SELFPAY ==
--- OUTSIDE RECORDS SUMMARY | 2003-03-08 08:45 | XMS_ITS | Continuity of Care Document ---
Author Organization [facility] Address [address] [place] [address] Phone Care Team Providers Care Edger Tailer Name Role Phone Gino Crowell MD Unavailable Unavailable Advance Directives Directive Yes / No Effective Date File Name No Information Encounters Encounter Description Practice Location Reason(s) For Visit Diagnoses Date Provider Providers Copied on Encounter [facility], [id number] [place] [address] [address], [place], [place], [id number], [place] tel:[phone] [address] [place] Professional No Information 0 [phone] 3 Mervat Christian. [address] [facility] [address], [place], [place], [id number], [place]. tel:[phone] Family History Family Member Type Diagnosis Age At Onset No Information Payers Payer name Insurance type Covered constitution party ID Authoriza tion(s) No Information Social History Type Description Quantity Date Captured Comments Sex Female Smoking Status No Information Chief Complaint And Reason For Visit No Information Reason For Referral Reason For Referral No Information History Of Present Illness Encounter Date Complaint History Of Prese nt Illness No Information Functional Status Date Functional Assessmen t No Information Instructions Date Instruction Additional Infor mation No Information Assessments Type Assessment Date No Information Patient Care Teams Name Effective Dates (start - stop) Status Members No Information
--- NOTE | ~2025-03-09 | XR_ITS ---
Abdominal radiograph(s) INDICATION: Right kidney stone COMPARISON: X-ray 03/12/2024 CT abdomen pelvis 08/28/2020 TECHNIQUE: 2 views supine AP abdomen FINDINGS: Scattered colonic gas and stool. Small bowel loops not well seen. No evidence of organomegaly. Upper abdominal right paraspinal calcification cluster unchanged, as are 2 additional focal calcifications within right upper quadrant. These are peripancreatic and paraduodenal on prior CT. No nephroureteral calculi identified. No acute bony abnormality. IMPRESSION: 1. No nephroureteral calculi identified. 2. No acute abnormality or significant change. Reviewed, dictated and finalized at location R.
--- OUTSIDE RECORDS SUMMARY | 2025-03-09 12:17 | XMS_ITS ---
Author Organization [facility] Address [address] [place] [address] Care Team Providers Care Rubber Calender Helper Name Role Phone Cooper Cintron MD Primary Care Provider Active Problems Problem Noted Date Diagnosed Date Medicare annual wellness visit, subsequent 06/11 Assessment & Plan (06/11/2024 3:32 PM CAN COVERER): Exercise 30 minutes per day 5x weekly. Eat heart healthy (Mediterranean) diet of fruits, vegetables, and whole grains; avoid saturated fats and excess sweets. All vaccines are current. Ordered mammography and breast ultrasound. No need for further colonoscopies. Osteoporosis 11/26/2023 Assessment & Plan (12/15/2024 12:55 PM CDT): Plan for 2nd Reclast infusion in December. DEXA due in Jul 2025. Assessment & Plan (06/11/2024 12:43 PM CAN COVERER): S/p 1 dose of Reclast. Will re-dose this summer. Continue calcium, vitamin D, and weight-bearing exercise. Assessment & Plan (11/26/2023 1:05 PM CDT): Osteopenia with high FRAX score. I recommended antiresorptive therapy. We discussed possible options and side effects. Proceed with Reclast. Continue calcium, vitamin D, and weight-bearing exercise. 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 Check bone density. Low back pain 10/11/2022 Assessment & Plan (10/11/2022 12:59 PM CDT): No alarm symptoms. XR first. Depending on results, will likely refer to PT. Recommend taking Voltaren or Aspercreme in the meantime; she can also use a heating pad. Leg heaviness 10/04/2021 Assessment & Plan (10/04/2021 12:55 PM CDT): Neurologic and vascular exams reassuring. Labs recently normal. Will monitor. Osteopenia of multiple sites 06/02/2021 Assessment & Plan (10/04/2021 12:54 PM CDT): Calcium, vit D, and weight-bearing exercise. Defer further osteoporosis therapy at this time after shared decision-making. Assessment & Plan (06/02/2021 9:09 PM CAN COVERER): Needs repeat DEXA, which I have ordered. Hypertension, essential 06/02/2021 Assessment & Plan (12/15/2024 12:55 PM CDT): At goal on current therapy. Assessment & Plan (06/11/2024 12:43 PM CAN COVERER): At goal on current therapy. Assessment & Plan (11/26/2023 1:04 PM CDT): At goal on current therapy. Assessment & Plan (06/25/2023 12:45 PM CAN COVERER): At goal on current therapy. Assessment & Plan (02/21/2023 12:37 PM CDT): Mildly elevated. Will monitor. Assessment & Plan (10/11/2022 12:58 PM CDT): At goal on current therapy. Assessment & Plan (06/13/2022 12:55 PM CAN COVERER): At goal on current therapy. Assessment & Plan (02/15/2022 12:30 PM CDT): At goal on current therapy. Assessment & Plan (10/04/2021 11:55 AM CDT): Not at goal. Increase Norvasc to 10 mg daily. Assessment & Plan (06/02/2021 9:09 PM CAN COVERER): Consistently elevated BP's at multiple visits. Start amlodipine 5 mg daily. Check BP's at home and keep log; goal < 130/80. Encounter for Medicare annual wellness exam 08/2020 Assessment & Plan (06/25/2023 12:47 PM CAN COVERER): MMG due in summer 2023. Colonoscopy due in May 2024. All vaccines are up to date. Assessment & Plan (06/13/2022 12:56 PM CAN COVERER): Overall good health. MMG ordered. Rosebud UTD. Vaccinations are current. Assessment & Plan (06/02/2021 9:10 PM CAN COVERER): Counseling provided on healthy lifestyle. Exercise 30 minutes per day 5x weekly. Eat heart healthy (Mediterranean) diet of fruits, vegetables, and whole grains; avoid saturated fats and excess sweets. Needs Shingrix vaccine. Cancer screening up to date. Labs due. Mixed hyperlipidemia 06/02/2021 Assessment & Plan (12/15/2024 12:55 PM CDT): At goal on current therapy. Assessment & Plan (06/11/2024 12:43 PM CAN COVERER): Due for lipid check. Continue statin. Assessment & Plan (11/26/2023 1:04 PM CDT): At goal on current therapy. Assessment & Plan (06/25/2023 12:45 PM CAN COVERER): At goal on current therapy. Assessment & Plan (02/21/2023 12:36 PM CDT): At goal on current therapy. Assessment & Plan (10/11/2022 10:08 AM CDT): At goal on current therapy. Assessment & Plan (06/13/2022 12:55 PM CAN COVERER): At goal on current therapy. Assessment & Plan (02/15/2022 12:30 PM CDT): At goal on current therapy. Assessment & Plan (10/04/2021 11:45 AM CDT): At goal on current therapy. Assessment & Plan (06/02/2021 9:09 PM CAN COVERER): At goal on current therapy. History of breast cancer 12/15/2019 Overview (12/15/2019): Added automatically from request for surgery [id number] Assessment & Plan (12/15/2024 12:55 PM CDT): MMG's are up to date. Assessment & Plan (06/25/2023 12:45 PM CAN COVERER): MMG due in summer 2023. 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 Assessment & Plan (06/11/2024 12:44 PM CAN COVERER): Receives Botox. Assessment & Plan (12/11/2023 10:19 AM CDT): Ms. Marybeth Whittaker is a 78 y.o. female, who presents for follow-up botulinum toxin injections for the treatment of cervical dystonia. She had excellent benefits to his last injection. She would be an appropriate candidate for repeat injections. The potential risks (including but not limited to bruising, hematoma, weakness, dysphagia, infection and injection site pain etc.), benefits, alternatives to chemodenervation were discussed. Injection pattern was not changed. Recommendations: Botox injected without EMG guidance as detailed below. - Botox 130U injected into the following using a 1 cc dilution: 20U Splenius Capitis (left) 20U Sternocleidomastoid (left) 20U Splenius Capitis (right) 30U Sternocleidomastoid (right) 20U Trapezius (left) 20U Trapezius (right) Unavoidable waste: 70 Units. I personally performed the procedure described above. Assessment & Plan (07/31/2023 10:22 AM CAN COVERER): Ms. Marybeth Whittaker is a 78 y.o. female, who presents for follow-up botulinum toxin injections for the treatment of cervical dystonia. She had excellent benefits to his last injection. She would be an appropriate candidate for repeat injections. The potential risks (including but not limited to bruising, hematoma, weakness, dysphagia, infection and injection site pain etc.), benefits, alternatives to chemodenervation were discussed. Injection pattern was not changed. Recommendations: Botox injected without EMG guidance as detailed below. - Botox 130U injected into the following using a 1 cc dilution: 20U Splenius Capitis (left) 20U Sternocleidomastoid (left) 20U Splenius Capitis (right) 30U Sternocleidomastoid (right) 20U Trapezius (left) 20U Trapezius (right) Unavoidable waste: 70 Units. I personally performed the procedure described above. Assessment & Plan (06/25/2023 12:46 PM CAN COVERER): Botox injections. Assessment & Plan (04/10/2023 1:23 PM CDT): Ms. Marybeth Whittaker is a 78 y.o. female, who presents for follow-up botulinum toxin injections for the treatment of cervical dystonia. She had excellent benefits to his last injection. She would be an appropriate candidate for repeat injections. The potential risks (including but not limited to bruising, hematoma, weakness, dysphagia, infection and injection site pain etc.), benefits, alternatives to chemodenervation were discussed. Injection pattern was not changed. Recommendations: Botox injected without EMG guidance as detailed below. - Botox 130U injected into the following using a 1 cc dilution: 20U Splenius Capitis (left) 20U Sternocleidomastoid (left) 20U Splenius Capitis (right) 30U Sternocleidomastoid (right) 20U Trapezius (left) 20U Trapezius (right) Unavoidable waste: 70 Units. I personally performed the procedure described above. Assessment & Plan (11/21/2022 10:22 AM CDT): Ms. Marybeth Whittaker is a 77 y.o. female, who presents for follow-up botulinum toxin injections for the treatment of cervical dystonia. She had excellent benefits to his last injection. She would be an appropriate candidate for repeat injections. The potential risks (including but not limited to bruising, hematoma, weakness, dysphagia, infection and injection site pain etc.), benefits, alternatives to chemodenervation were discussed. Injection pattern was not changed. Recommendations: Botox injected without EMG guidance as detailed below. - Botox 130U injected into the following using a 1 cc dilution: 20U Splenius Capitis (left) 20U Sternocleidomastoid (left) 20U Splenius Capitis (right) 30U Sternocleidomastoid (right) 20U Trapezius (left) 20U Trapezius (right) Unavoidable waste: 70 Units. I personally performed the procedure described above. Assessment & Plan (06/20/2022 10:54 AM CAN COVERER): Ms. Marybeth Whittaker is a 77 y.o. female, who presents for follow-up botulinum toxin injections for the treatment of cervical dystonia. She had excellent benefits to his last injection. She would be an appropriate candidate for repeat injections. The potential risks (including but not limited to bruising, hematoma, weakness, dysphagia, infection and injection site pain etc.), benefits, alternatives to chemodenervation were discussed. Injection pattern was not changed. She wishes to wait for 5 months and document improvements with injections. She knows to call if she has neck pain or neck twisting that is worse. Recommendations: Botox injected without EMG guidance as detailed below. - Botox 130U injected into the following using a 1 cc dilution: 20U Splenius Capitis (left) 20U Sternocleidomastoid (left) 20U Splenius Capitis (right) 30U Sternocleidomastoid (right) 20U Trapezius (left) 20U Trapezius (right) Unavoidable waste: 70 Units. I personally performed the procedure described above. Assessment & Plan (02/14/2022 10:11 AM CDT): Ms. Marybeth Whittaker is a 76 y.o. female, who presents for follow-up botulinum toxin injections for the treatment of cervical dystonia. She had excellent benefits to his last injection. She would be an appropriate candidate for repeat injections. The potential risks (including but not limited to bruising, hematoma, weakness, dysphagia, infection and injection site pain etc.), benefits, alternatives to chemodenervation were discussed. Injection pattern was not changed. Recommendations: Botox injected without EMG guidance as detailed below. - Botox 130U injected into the following using a 1 cc dilution: 20U Splenius Capitis (left) 20U Sternocleidomastoid (left) 20U Splenius Capitis (right) 30U Sternocleidomastoid (right) 20U Trapezius (left) 20U Trapezius (right) Unavoidable waste: 70 Units. I personally performed the procedure described above. Assessment & Plan (10/11/2021 10:13 AM CDT): Ms. Marybeth Whittaker is a 76 y.o. female, who presents for follow-up botulinum toxin injections for the treatment of cervical dystonia. She had excellent benefits to his last injection. She would be an appropriate candidate for repeat injections. The potential risks (including but not limited to bruising, hematoma, weakness, dysphagia, infection and injection site pain etc.), benefits, alternatives to chemodenervation were discussed. Injection pattern was not changed. Recommendations: Botox injected without EMG guidance as detailed below. - Botox 130U injected into the following using a 1 cc dilution: 20U Splenius Capitis (left) 20U Sternocleidomastoid (left) 20U Splenius Capitis (right) 30U Sternocleidomastoid (right) 20U Trapezius (left) 20U Trapezius (right) Unavoidable waste: 70 Units. I personally performed the procedure described above. Sensorineural hearing loss (SNHL) 09/23/2014 Abdominal bloating 02/19/2013 Surgical follow-up care 04/11/2012 Osteoarthritis of knee 10/02/2010 Assessment & Plan (12/15/2024 12:56 PM CDT): Follow up with Dr. Gonzalez. Assessment & Plan (02/21/2023 12:36 PM CDT): Has appt with orthopedics upcoming. Assessment & Plan (02/15/2022 12:31 PM CDT): Refer to ortho for steroid injection. Current Treatment and Therapy Plans No current plan information found. Other Current Plans Zoledronic Acid (Reclast) Infusion* Plan Start Date:01/12/2025 Plan Provider:Cooper Cintron MD Linked Problems Age-related osteoporosis wit hout current pathological fracture Treatment Medications No medications scheduled. Past Treatment and Therapy Plans Lifetime Dose Tracking * Chemical Lifetime Dose Automatic Entry Manual Entr y DLP 356 mGycm 356 mGycm 0 mGycm
--- OUTSIDE RECORDS SUMMARY | 2025-03-09 12:17 | XMS_ITS | Encounter Summary ---
Author Organization [facility] Address [address] [place] [address] Care Team Providers Care Form Setter Supervisor Name Role Phone Cooper Cintron MD Primary Care Provider Encounter Details Date Type Department Care Team (Late st Contact Info) Description 01/14/2025 Results Follow-Up [facility] [address] [address] Cooper Cintron MD [address] [place] [id number] Creatinine, eGFR Social History Tobacco Use Types Packs/Day Years Used Date Smoking Tobacco: Never Passive Smoke Exposure: Past Smokeless Tobacco: Never Alcohol Use Standard Drinks/Week Comments Yes 0 (1 standard drink = 0.6 oz pur e alcohol) AUDIT-C Answer Date Recorded Q1: How often do you have a drink containing alc ohol? 2-4 times a month 10/31/2023 Q2: How many drinks containi ng alcohol do you have on a typical day when you are drinking? 1 or 2 10/31/2023 Q3: How often do you have si x or more drinks on one occasion? Never 10/31/2023 PHQ-2 Answer Date Recorded PHQ-2 Total Score (If total score is 3 or more points, staff should administer the PHQ-9) 0 06/11/2024 Hunger Vital Sign Answer Date Recorded Within the past 12 months, y ou worried that your food would run out before you got the money to buy more. Never true 01/15/20 25 Within the past 12 months, t he food you bought just didn't last and you didn't have money to get more. Never true 01/14/2025 Personal Safety Answer Date Recorded Have you ever been in or are you currently in a harmful physical or emotional relationship or is someone making you feel afraid or unsafe? Denies 01/14/2025 Comments No Sex and Gender Information Value Date Recorded Sex Assigned at Not on file Legal Sex Female 12:12 PM FILTER TENDER Gender Identity Not on file Sexual Orientation Not on file documented as of this encounter Miscellaneous Notes * Result Encounter Note - Cooper Cintron MD - 01/14/2025 12:17 PM CDT Normal electrolytes. documented in this encounter Plan of Treatment Scheduled Procedures Name Priority Associated Diagnoses Date/Ti me COLONOSCOPY Open Access Osteoporosis, unspecified osteoporosis type, unspecified pathological fracture presence documented as of this encounter Visit Diagnoses Not on filedocumented in this encounter Care Teams Form Setter Supervisor Relationship Specialty Start Date End Date Cooper Cintron MD PCP - General Endocrinology Diabetes & Metabolism 05/30/21 documented as of this encounter
--- OUTSIDE RECORDS SUMMARY | 2025-03-09 12:17 | XMS_ITS | Encounter Summary ---
Author Organization [facility] Address [address] [place] [address] Care Team Providers Care Ribbon Blockmaker Name Role Phone Barron Santana MD Primary Care Provider [phone] Encounter Details Date Type Department Care Team (Late st Contact Info) Description 07/16/2019 [facility] Outpatient Visit [facility] Orthopedics - Radiology [address] [place] [id number] Document, Scanned Social History Tobacco Use Types Packs/Day Years Used Date Smoking Tobacco: Never Smokeless Tobacco: Never Comments No Sex and Gender Information Value Date Recorded Sex Assigned at Not on file Legal Sex Female 1:47 PM CDT Gender Identity Not on file Sexual Orientation Not on file documented as of this encounter Plan of Treatment Not on file documented as of this encounter Visit Diagnoses Not on filedocumented in this encounter Care Teams Ribbon Blockmaker Relationship Specialty Start Date End Date Barron Santana MD PCP - General 09/07/20 documented as of this encounter
--- OUTSIDE RECORDS SUMMARY | 2025-03-09 12:17 | XMS_ITS | Encounter Summary ---
Author Organization [facility] Address [address] [place] [address] Care Team Providers Care Fisher Lampara Net Name Role Phone Cooper Cintron MD Primary Care Provider Encounter Details Date Type Department Care Team (Late st Contact Info) Description 02/21/2025 Results Follow-Up [facility] at [address] [id number] Luis Enrique Barrera, BENJAMIN [address] [place] [address] [address] [place] [address] Urine culture Urine, clean voided Social History Tobacco Use Types Packs/Day Years [...] on file Legal Sex Female 12:12 PM 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
--- OUTSIDE RECORDS SUMMARY | 2025-03-09 12:17 | XMS_ITS | Clinical Summary ---
Author Organization [facility] al Address [address] [place] [address] Care Team Providers Care Collision Repairer Name Role Phone Cooper Cintron MD Primary Care Provider Allergies Active Allergy Reactions Criticality Noted Date Comments Chlorhexidine Rash Medium 10/31/2023 Latex Other (See comments) Low 10/14/2023 rash Nickel Edema Medium Primidone Agitation,Dizziness,Nausea only Low 09/2010 Medications cholecalciferol (VITAMIN D-3) 93239 unit capsule Take 4,000 Units by mouth cloth shrinking tester before breakfast Active doxycycline hyclate (VIBRAMYCIN) 50 mg capsule Take 1 capsule (50 mg total) by mouth cloth shrinking tester before breakfast Active carboxymethylce llulose (REFRESH PLUS) 0.5 % dropperette Administer 1 drop into both eyes 2 (two) times a day Active azelaic acid 15 % gelIndications: Acne Rosacea Apply topically 2 (two) times a day After skin is thoroughly washed and patted dry, gently but thoroughly massage a thin film of azelaic acid cream into the affected area twice daily, in the morning and evening. DO NOT APPLY TO RIGHT KNEE SURGICAL INCISION. 4 Active ibuprofen-diphe nhydramine cit (Advil PM) 200-38 mg tablet Active propranoloL (INDERAL) 20 mg tablet Take 1 tablet (20 mg total) by mouth once as needed (head tremor) 30 tablet 3 5 11/10/19 26 Active amLODIPine (NORVASC) 10 mg tablet TAKE 1 TABLET(10 MG) BY MOUTH DAILY 90 tablet 3 5 Active pravastatin (PRAVACHOL) 40 mg tablet Take 1 tablet (40 mg total) by mouth daily 90 tablet 1 5 Active pravastatin (PRAVACHOL) 40 mg tablet TAKE 1 TABLET BY MOUTH EVERY DAY 90 tablet 1 5 02/26/20 25 Discontin ued([facility]) Hospital, Clinic, or Other Facility Administered Medication Ordered Dose Route Frequency Start Date End Date Status onabotulinumtoxin A (BOTOX) injection 200 UnitsIndications:Spa smodic torticollis 200 Units IM Once for Clinic-Administer ed Medication 03/17/2025 03/16/2026 Active Active Problems Problem Noted Date Diagnosed Date Medicare annual wellness visit, subsequent 06/11 Assessment & Plan (06/11/2024 3:32 PM LUMBER SCALER): Exercise 30 minutes per day 5x weekly. [...] 2025. Assessment & Plan (06/11/2024 12:43 PM LUMBER SCALER): S/p 1 dose of Reclast. Will re-dose [...] 06/25/2023 Assessment & Plan (06/25/2023 12:46 PM LUMBER SCALER): Likely due to orthopedic factors including knee [...] decision-making. Assessment & Plan (06/02/2021 9:09 PM LUMBER SCALER): Needs repeat DEXA, which I have ordered. Hypertension, essential 06/02/2021 Assessment & Plan (12/15/2024 12:55 PM CDT): At goal on current therapy. Assessment & Plan (06/11/2024 12:43 PM LUMBER SCALER): At goal on current therapy. Assessment & Plan (11/26/2023 1:04 PM CDT): At goal on current therapy. Assessment & Plan (06/25/2023 12:45 PM LUMBER SCALER): At goal on current therapy. Assessment & Plan (02/21/2023 12:37 PM CDT): Mildly elevated. Will monitor. Assessment & Plan (10/11/2022 12:58 PM CDT): At goal on current therapy. Assessment & Plan (06/13/2022 12:55 PM LUMBER SCALER): At goal on current therapy. Assessment & Plan (02/15/2022 12:30 PM CDT): At goal on current therapy. Assessment & Plan (10/04/2021 11:55 AM CDT): Not at goal. Increase Norvasc to 10 mg daily. Assessment & Plan (06/02/2021 9:09 PM LUMBER SCALER): Consistently elevated BP's at multiple visits. Start amlodipine 5 mg daily. Check BP's at home and keep log; goal < 130/80. Encounter for Medicare annual wellness exam 08/2020 Assessment & Plan (06/25/2023 12:47 PM LUMBER SCALER): MMG due in summer 2023. Colonoscopy due in May 2024. All vaccines are up to date. Assessment & Plan (06/13/2022 12:56 PM LUMBER SCALER): Overall good health. MMG ordered. [place] UTD. Vaccinations are current. Assessment & Plan (06/02/2021 9:10 PM LUMBER SCALER): Counseling provided on healthy lifestyle. Exercise 30 minutes per day 5x weekly. Eat heart healthy (Mediterranean) diet of fruits, vegetables, and whole grains; avoid saturated fats and excess sweets. Needs Shingrix vaccine. Cancer screening up to date. Labs due. Mixed hyperlipidemia 06/02/2021 Assessment & Plan (12/15/2024 12:55 PM CDT): At goal on current therapy. Assessment & Plan (06/11/2024 12:43 PM LUMBER SCALER): Due for lipid check. Continue statin. Assessment & Plan (11/26/2023 1:04 PM CDT): At goal on current therapy. Assessment & Plan (06/25/2023 12:45 PM LUMBER SCALER): At goal on current therapy. Assessment & Plan (02/21/2023 12:36 PM CDT): At goal on current therapy. Assessment & Plan (10/11/2022 10:08 AM CDT): At goal on current therapy. Assessment & Plan (06/13/2022 12:55 PM LUMBER SCALER): At goal on current therapy. Assessment & Plan (02/15/2022 12:30 PM CDT): At goal on current therapy. Assessment & Plan (10/04/2021 11:45 AM CDT): At goal on current therapy. Assessment & Plan (06/02/2021 9:09 PM LUMBER SCALER): At goal on current therapy. History of breast cancer 12/15/2019 Overview (12/15/2019): Added automatically from request for surgery [id number] Assessment & Plan (12/15/2024 12:55 PM CDT): MMG's are up to date. Assessment & Plan (06/25/2023 12:45 PM LUMBER SCALER): MMG due in summer 2023. Chronic hepatitis [...] Botox. Assessment & Plan (06/11/2024 12:44 PM LUMBER SCALER): Receives Botox. Assessment & Plan (12/11/2023 10:19 AM CDT): Ms. Marybeth Gutierrez is a 78 y.o. female, who presents [...] above. Assessment & Plan (07/31/2023 10:22 AM LUMBER SCALER): Ms. Marybeth Gutierrez is a 78 y.o. female, who presents [...] above. Assessment & Plan (06/25/2023 12:46 PM LUMBER SCALER): Botox injections. Assessment & Plan (04/10/2023 1:23 PM CDT): Ms. Marybeth Gutierrez is a 78 y.o. female, who presents [...] Plan (11/21/2022 10:22 AM CDT): Ms. Marybeth Gutierrez is a 77 y.o. female, who presents [...] above. Assessment & Plan (06/20/2022 10:54 AM LUMBER SCALER): Ms. Marybeth Gutierrez is a 77 y.o. female, who presents [...] Plan (02/14/2022 10:11 AM CDT): Ms. Marybeth Gutierrez is a 76 y.o. female, who presents [...] Plan (10/11/2021 10:13 AM CDT): Ms. Marybeth Gutierrez is a 76 y.o. female, who presents [...] CDT): Refer to ortho for steroid injection. Encounters Date Type Department Care Team Description 02/25/2025 1:48 PM CDT - 02/25/2025 11:59 PM CDT Hospital Encounter [facility] [address] [place] [address] Other microscopic hematuria Discharge Disposition: Discharge to home or self care 02/25/2025 8:45 AM CDT Office Visit [facility] [address] [place] [address] Mikki Spence NP Other microscopic hematuria (Primary Dx); History of kidney stones; Chronic midline low back pain without sciatica 02/25/2025 Results Follow-Up [facility] [address] [place] [address] Mikki Spence NP Urinalysis reflex to microscopic and culture Urine 02/21/2025 Results Follow-Up [facility] [address] [phone] Luis Enrique Barrera NP Urine culture Urine, clean voided 02/20/2025 2:31 PM CDT - 02/20/2025 11:59 PM CDT Hospital Encounter [address] [address] Urethral pain; Other microscopic hematuria Discharge Disposition: Discharge to home or self care 02/20/2025 12:00 PM CDT Office Visit [facility] [address] [phone] Luis Enrique Barrera NP Urethral pain (Primary Dx); Other microscopic hematuria 01/14/2025 12:00 PM CDT Lab [facility] [address] [place] [phone] Age-related osteoporosis without current pathological fracture 01/14/2025 10:30 AM CDT Infusion [facility] [address] [place] [address] [address] [place] [phone] Age-related osteoporosis without current pathological fracture (Primary Dx) 01/14/2025 Results Follow-Up [facility] [address] [place] [address] [place] [phone] Cooper Cintorn MD Creatinine, eGFR 01/12/2025 Telephone [facility] [address] [place] [address] [address] [place] [phone] Marie Boogie, RA 01/12/2025 Orders Only [facility] [address] [place] [address] [address] [place] [phone] Emmy Sim, RA Age-related osteoporosis without current pathological fracture (Primary Dx) 01/11/2025 Orders Only [facility] [address] [place] [address] [place] [phone] Cooper Cintron MD 12/23/2024 Telephone [facility] [address] [facility] [address] [place] [phone] Cooper Cintron MD 12/16/2024 11:00 AM CDT Office Visit [facility] Orthopaedic Surgery [address] [facility] [address] [place] [phone] Farhan Gonzalez MD Aftercare following right knee joint replacement surgery (Primary Dx) 12/16/2024 10:17 AM CDT - 12/16/2024 11:59 PM CDT Hospital Encounter [facility] [address] [facility] [address] [place] [phone] Aftercare following right knee joint replacement surgery Discharge Disposition: Discharge to home or self care 12/15/2024 10:30 AM CDT Office Visit [facility] [address] [place] [phone] Cooper Cintron MD Hypertension, essential (Primary Dx); Mixed hyperlipidemia; Age-related osteoporosis without current pathological fracture; History of breast cancer; Spasmodic torticollis; Osteoarthritis of knee, unspecified laterality, unspecified osteoarthritis type 12/09/2024 10:45 AM CDT Procedure visit [facility] Movement Disorders [address] [place] [address] 6th [place] [address] [place] [address] Yusuf Meyer MD Spasmodic torticollis (Primary Dx) from Last 3 Months Immunizations Immunization Administration Dates Next Due Influenza, Quadrivalent, Spl it, Preservative Free, Intramuscular 04/14/2015 Influenza, Trivalent, Adjuvanted, Intramuscular 03/30/2019 Influenza, Trivalent, High D ose, Split, Preservative Free, Intramuscular 03/28/2017,04/05/2016 Influenza, Trivalent, IM (MDV) 03/31/2013 Pneumococcal Polysaccharide PPV23 04/29/2015 Td, Unspecified 10/24/2023 ZOSTER LIVE 07/15/2015 Surgical History Surgery Date Site/Laterality Comments DC DELIVERY ONLY Section - X3 (Added by TW Conv) MASTECTOMY Breast Surgery Mastectomy - R SIDE (Added by TW Conv) DC TOTAL ABDOMINAL HYSTERECT W/WO RMVL TUBE OVARY Hysterectomy - (Added by TW Conv) BREAST SURGERY Breast Surgery Reconstruction - X2 (Added by TW Conv) DC ARTHROPLASTY KNEE TIBIAL PLATEAU Knee Replacement - PARTIAL (Added by TW Conv) KNEE ARTHROPLASTY 10/31/2023 Right Medical History Medical History Date Comments Personal history of arthritis Ar thritis - (Added by TW Conv) Aftercare following joint re placement surgery Aftercare following joint re placement - (Added by TW Conv) Malignant neoplasm of female breast (HCC) Breast cancer - (Added by TW Conv) HL (hearing loss) PONV (postoperative nausea and vomiting) Hypertension Kidney stone Family History Medical History Relation Name Comments Laryngeal Cancer Father Laryngeal C ancer - (Added by TW Conv) Skin cancer Maternal Grandfather Family history of skin cancer - (Added by TW Conv) Pancreatic cancer Mother Adenocarci noma Of The Pancreas - (Added by TW Conv) Diabetes Mother's Sister Diabetes Hilary litus - (Added by TW Conv) Osteoporosis Paternal Grandmother Family history of osteoporosis - (Added by TW Conv) Anesthesia problems Neg Hx Relation Name Status Comments Father Maternal Grandfather Mother Mother's Sister Paternal Grandmother Social History Tobacco Use Types Packs/Day Years Used Date Smoking Tobacco: Never Passive Smoke Exposure: Past Smokeless Tobacco: Never Tobacco Cessation:Counseling Given: No Alcohol Use Standard Drinks/Week Comments Yes 0 [...] on file Legal Sex Female 12:12 PM LUMBER SCALER Gender Identity Not on file Sexual Orientation Not on file Obstetrics History Last Filed Vital Signs Vital Sign Reading Time Taken Comments Blood Pressure 164/79 02/25/2025 8:32 AM CDT Pulse 61 02/25/2025 8:32 AM CDT Temperature 36.5 C (97.7 F) 02/20/2025 11:16 AM CDT Respiratory Rate 20 02/20/2025 11:16 AM CDT Oxygen Saturation 93% 02/25/2025 8:32 AM CDT Inhaled Oxygen Concentration - - Weight 82.6 kg (182 lb) 02/25/2025 8:32 AM CDT Height 160 cm (5' 3) 02/25/2025 8:32 AM CDT Body Mass Index 32.24 02/25/2025 8:32 AM CDT Plan of Treatment Scheduled Procedures Name Priority Associated Diagnoses Date/Ti me COLONOSCOPY Open Access Osteoporosis, unspecified osteoporosis type, unspecified pathological fracture presence Health Maintenance Due Date Last Done Comments Hepatitis B Screening 1963 Zoster Vaccine (2 of 3) 09/09/2015 07/15/2015 Pneumococcal vaccine 65+ (2 of 2 - PCV) 04/29/2016 04/29/2015 DTaP/Tdap/Td Vaccine (1 - Tdap) 10/25/2023 Influenza Vaccine (#1) 2025 9, 03/28/2017, 04/05/2016, Additional history exists Depression Screening 06/11/2025 06/11/2024, 06/25/2023, 06/13/2022, Additional history exists Fall Risk Assessment 06/11/2025 06/11/2024, 12/24/2023, 06/25/2023, Additional history exists Well Visit 65+ 06/11/2025 06/11/2024, 06/01, 06/13/2022, Additional history exists Osteoporosis Screening-Bone Density Scan 07/05/2025 07/05/2023, 07/12/2021, 03/11/2013 Colon Cancer Screening-CT Colonography Discontinued 12/24/2023, 05/03/2014 Colon Cancer Screening-Colonoscopy Discontinued 12/24/2023, 05/03/2014 Colon Cancer Screening-DNA Stool Discontinued 12/24/19, 05/03/2014 Colon Cancer Screening-FIT Discontinued 12/24/2023, Colon Cancer Screening-FOBT Discontinued 12/24/2023, 1 07/03/2013 Colon Cancer Screening-Sigmoidoscopy Discontinued 12/24/2023, 05/03/2014 Colorectal Cancer Screening Discontinued Medical Devices Implanted Type Area Ruby Software Developer Device Identifier Shelf Expiration Date Model / Serial / Lot Rt Partial Knee Arthroplasty Right: Knee [employer] Legion 11mm Dished Knee 3-4 Insert Tibial Xlpe [id number] - [id number] Implanted:Qty: 1 on 10/31/2023 by Farhan Gonzalez MD at [facility] Right: Knee [employer] 08/26/2031 [id number] / / Description:Would not come u p in KORI implant pause performed [employer] Legion Cemented Male Taper Knee Right 4 Baseplate Tibial Titanium [id number] - [id number] Implanted:Qty: 1 on 10/31/2023 at [facility] Right: Knee [employer] 03/06/2033 [id number] / / [id number] [employer] Legion Cruciate Retain Knee Right 4n Narrow Component Femoral [id number] - [id number] Implanted:Qty: 1 on 10/31/2023 at [facility] Right: Knee [employer] 02/22/2033 [id number] / / [id number] [employer] Smartset Medium Viscosity Cement 40gm Bone Gentamicin [id number] - [id number] Implanted:Qty: 1 on 10/31/2023 at [facility] Right: Knee [employer] 12/28/2024 [id number] / / [id number] [employer] Smartset Medium Viscosity Cement 40gm Bone Sterile 3122-040 - [id number] Implanted:Qty: 1 on 10/31/2023 at [facility] Right: Knee [employer] 01/28/2025 3122-040 / / [id number] Procedures Procedure Name Priority Date/Time Associated Diagnosis Comments URINALYSIS AND REFLEX TO MICROSCOPIC AND CULTURE Routine 02/25/2025 1:48 PM CDT Other microscopic hematuria URINE CULTURE Routine 02/20/2025 2:31 PM CDT Urethral pain Other microscopic hematuria POCT URINALYSIS DIPSTICK Routine 02/20/2025 11:37 AM CDT Urethral pain Other microscopic hematuria EGFR Routine 01/14/2025 9:52 AM CDT Age-related osteoporosis without current pathological fracture CREATININE Routine 01/14/2025 9:52 AM CDT Age-related osteoporosis without current pathological fracture XR KNEE RIGHT 3 VIEWS Schedule Routine, Read Routine (OP Routine) 12/16/2024 10:46 AM CDT Aftercare following right knee joint replacement surgery COLONOSCOPY 12/24/2023 10:33 AM CDT DEXA AXIAL SKELETON BONE DENSITY 1 OR MORE SITES Schedule Routine, Read Routine (OP Routine) 07/05/2023 1:42 PM LUMBER SCALER Osteopenia, unspecified location Postmenopausal from Last 3 Months or Most Recently Relevant to Health Maintenance Results * Urinalysis reflex to microscopic and culture Urine (02/25/2025 1:48 PM CDT) Color, ur Straw Yellow Clarity, ur Clear Clear [facility] Specific gravity, ur 1.018 1.003 - 1.030 [facility] pH, urine 6.0 [facility] Comment: Interpretive Data U rine pH is affected by diet, medications, systemic acid-base disturbances, and renal tubular function. pH may affect urinary stone formation. For example, urine pH below 6.0 may help reduce the tendency for calcium phosphate stones and pH greater than 6.0 may reduce the tendency for uric acid stone formation. Source: [facility] Current Interpretive Data was last revised on 2017 Protein, ur ql Negative Negative [facility] Glucose, ur ql Negative Negative [facility] Ketones, ur Negative Negative [facility] Bilirubin, ur Negative Negative [facility] Blood, ur Negative Negative [facility] Urobilinogen, ur <2.0 <2.0 mg/dL [facility] Nitrite, ur Negative Negative [facility] Leukocyte esterase, ur Negative Negative [facility] UA reflex comment Reflex conditions for microscopic UA and culture not met. [facility] Urine 02/25/2025 1:48 PM CDT 02/25/2025 3:06 PM CDT us Mikki Spence DATA MODELER LAB MICROBIOLOGY - GENERAL OR DERABLES Final Result Performing Organization Address [facility]/ZIP Co de Phone Number [facility] Department [place] [address] * Urine culture Urine, clean voided (02/20/2025 2:31 PM CDT) Report Final Report: Less than 100,000 colonies/mL (clinically insignificant growth based on current clinical standards) Comment:Testing performed by : [facility], [address], [place]., [address] Organism (CLINICALLY INSIGNIFICANT GROWTH [facility] Urine, clean voided 02/20/2025 2:31 PM CDT 02/20/2025 4:13 PM CDT Narrative ROSA - 02/21/2025 6:23 PM CDT Testing performed by [facility] ([phone]) us Luis Enrique Barrera DATA MODELER LAB MICROBIOLOGY - GENERAL ORDE RABLES Final Result Performing Organization Address City/[facility]/ZIP Co de Phone Number [facility] [address] [place] [address] * (ABNORMAL) POCT urinalysis dipstick (02/20/2025 11:37 AM CDT) Color, Urine, POC Yellow Clarity, ur, POC Clear Clear Glucose, ur, POC Negative Negative Bilirubin, ur, POC Negative Negative Ketones, ur, POC Negative Negative Specific [place], POC 1.005 1.003 - 1.030 Blood, ur, POC Large(A) Negative pH, ur, POC 6.0 5.0 - 8.0 Protein, ur, POC Negative Negative Urobilinogen, urine, POC 0.2 0.2 - 1.0 mg/dL Nitrite, ur, POC Negative Negative Leukocytes, ur, POC Negative Negative Lot Number [id number] Urine 02/20/2025 11:3 7 AM CDT Luis Enrique Barrera NP POINT OF CARE TEST ORDERABLES F inal Result * eGFR (01/14/2025 9:52 AM CDT) eGFR 77 >=60 mL/min/1. 73 m2 Comment: Interpretive Data Reference Interval Normal >/= 90 mL/min/1.73m2 Mildly decreased* 60 - 89 mL/min/1.73m2 Mildly to moderately decreased 45 - 59 mL/min/1.73m2 Moderately to severely decreased 30 - 44 mL/min/1.73m2 Severely decreased 15 - 29 mL/min/1.73m2 Kidney Failure < 15 mL/min/1.73m2 *Relative to young adult level Estimated glomerular filtration rate is determined by the 2020 CKD-EPI equation recommended by the National Kidney Foundation (A Unifying Approach to GFR Estimation: Recommendations of the NKF-ASK Task Force on Reassessing the Inclusion of Race in Diagnosing Kidney Disease, JASN 2020). The CKD-EPI equation should not be used for patients with unstable renal function and has not been validated in children and those over 70. Current interpretive data was last reviewed 2021. Blood 01/14/2025 9:52 AM CDT 01/14/2025 10:36 AM CDT Cooper Cintron MD LAB BLOOD ORDERABLES Fi nal Result [facility] [place] [address] * Creatinine (01/14/2025 9:52 AM CDT) Creatinine 0.78 0.60 - 1.10 mg/dL Blood 01/14/2025 9:52 AM CDT 01/14/2025 10:29 AM CDT us Cooper Cintron MD LAB BLOOD ORDERABLES Fi nal Result Performing Organization Address [facility] Co de Phone Number [facility] POL[facility] Department [place] [address] * XR Knee Right 3 Views (12/16/2024 10:46 AM CDT) Anatomical Region Laterality Modality Lower Extremities, Knee Right Computed Radiography 12/16/2024 10:5 0 AM CDT Impressions 12/16/2024 10:50 AM CDT 1. Two component right knee arthroplasty in unchanged, near anatomic position. Electronically signed by: Nick Francis M.D. Narrative 12/16/2024 10:50 AM CDT EXAMINATION: XR KNEE RIGHT 3 VIEWS HISTORY: Right knee pain FINDINGS: 3 view examination of the right knee is compared with a study from 11/27/2023. Two component right knee arthroplasty remains in near-anatomic position. There is no fracture or component migration. There is a small joint effusion. There is a small amount of medial heterotopic ossification just proximal to the joint line. Procedure Note Nick Francis MD - 12/16/2024 EXAMINATION: XR KNEE RIGHT 3 VIEWS HISTORY: Right knee pain FINDINGS: 3 view examination of the right knee is compared with a study from 11/27/2023. Two component right knee arthroplasty remains in near-anatomic position. There is no fracture or component migration. There is a small joint effusion. There is a small amount of medial heterotopic ossification just proximal to the joint line. IMPRESSION: 1. Two component right knee arthroplasty in unchanged, near anatomic position. Electronically signed by: Nick Francis M.D. us Farhan Gonzalez MD IMG XR PROCEDURES Final R esult * Colonoscopy (12/24/2023 10:33 AM CDT) Anatomical Region Laterality Modality Other Narrative Procedure Note Fabián Ramesh MD PhD - 12/24/2023 10:33 AM CDT [facility] ENDOSCOPY [facility] Patient Name: Marybeth Gutierrez Procedure Date: 12/24/2023 10:33 AM Date of : 1945 Admit Type: Outpatient Age: 78 Gender: Female Attending MD: Fabián Ramesh MD,PHD Room: [facility] ENDOSCOPY ROOM 4 Note Status: Finalized Procedure: Colonoscopy Indications: Screening for colorectal malignant neoplasm, Last colonoscopy: May 2014 Referring MD: Cooper Cintron M.D. Providers: Fabián Ramesh MD, PHD Medicines: Monitored Anesthesia Care Complications: No immediate complications. Estimated Blood Loss: Estimated blood loss was minimal. Procedure: Pre-Anesthesia Assessment: - Prior to the procedure, a History and Physicalwas performed, and patient medications, allergies and sensitivities were reviewed. The patient'stolerance of previous anesthesia was reviewed. - The risks and benefits of the procedure and the sedation options and risks were discussed with the patient. All questions were answered and informed consent was obtained. - After reviewing the risks and benefits, thepatient was deemed in satisfactory condition to undergo the procedure. - Immediately prior to administration ofmedications, the patient was re-assessed for adequacy to receive sedatives. The benefits, risks and alternatives of theprocedure and sedation were discussed and informed consentwas obtained. All questions were answered. Please referto the signed informed consent document in the medical record. The scope was passed under direct vision.The CF HQ [id number] endoscope was introducedthrough the anus and advanced to the terminal ileum. The colonoscopy was performed with ease. The patient tolerated the procedure well. The quality of thebowel preparation was evaluated using the BBPS (BostonBowel Preparation Scale) with scores of: Right Colon = 2 (minor amount of residual staining, small fragmentsof stool and/or opaque liquid, but mucosa seen well), Transverse Colon = 2 (minor amount of residual staining, small fragments of stool and/or opaque liquid, but mucosa seen well) and Left Colon = 2 (minor amount of residual staining, small fragmentsof stool and/or opaque liquid, but mucosa seen well).The total BBPS score equals 6. The quality of the bowel preparation was good. The bowel preparation usedwas GoLYTELY via split dose instruction. The quality of the bowel preparation was good. Findings: The perianal and digital rectal examinations were normal. The terminal ileum appeared normal. Many small and large-mouthed diverticula were found in therecto-sigmoid colon. Internal hemorrhoids were found during retroflexion. Impression: - The examined portion of the ileum was normal. - Diverticulosis in the recto-sigmoid colon. - Internal hemorrhoids. Reports 3-4 loose BM, so biopsied to rule out microscopic colitis. Recommendation: - Future colonoscopies are of questionable benefitat this age 78 Electronically signed by Fabián Ramesh MD PHD Fabián Ramesh MD, PHD 12/24/2023 11:39:35 AM . Number of Addenda: 0 Note Initiated On: 12/24/2023 10:33 AM Fabián Ramesh MD PhD ENDOSCOPY PROCEDURES F inal Result * Dexa Axial Skeleton Bone Density 1 or 2 Site (07/05/2023 1:42 PM LUMBER SCALER) Anatomical Region Laterality Modality Body N/A Digital Radiogra phy 07/05/2023 4:42 PM LUMBER SCALER Impressions 07/05/2023 4:42 PM LUMBER SCALER 1. The bone mineral density of the lumbar spine is mildly decreased. There has been no significant change in bone mineral density since the baseline examination of 07/12/2021. 2. The bone mineral density of the left femoral neck is mildly decreased. There has been a statistically significant decrease in bone mineral density since the baseline examination of 07/12/2021. 3. The bone mineral density of the left total hip is mildly decreased. There has been a statistically significant decrease in bone mineral density since the baseline examination of 07/12/2021. 4. Overall, the above findings are diagnostic of low bone mass (osteopenia) by WHO criteria. 5. Based on the FRAX fracture risk model, the 10-year probability for major osteoporotic fracture is 21% and that for hip fracture is 5.5%. This 10-year fracture risk estimate was calculated using the risk factors noted in the history above, along with the femoral neck bone density. FRAX is intended to help guide treatment decisions in men over age 50 and postmenopausal women with low bone mass (osteopenia). The National Osteoporosis Foundation (NOF) recommends that FDA-approved medical therapies be considered in postmenopausal women and men age 50 years and older with osteoporosis and those with low bone mass whose 10-year fracture probability by FRAX is >= 20% for major osteoporotic fracture or >= 3% for hip fracture. However, all treatment decisions require clinical judgment and consideration of individual patient factors, including patient preferences, comorbidities, previous drug use, risk factors not captured in the FRAX model (e.g., frailty, falls, vitamin D deficiency, increased bone turnover, interval significant decline in bone density) and possible under- or overestimation of fracture risk by FRAX. General comments regarding interpretation of bone density measurements: A) In children, premenopausal woman and males under age 50 not at increased risk for fractures only Z-scores, not T-scores are used to indicate risk. A Z-score above -2.0 is defined as within the expected range for age and Z-score at or less than -2.0 is below the expected range for age. A Z-score below the expected range for age in a patient with recent fractures and/or chronic corticosteroid treatment is consistent with a diagnosis of osteoporosis. B) In post menopausal women and males over 50, comparison of the measured bone mineral density with the average value in young normal subjects (the T-score) has been found to be useful in assessing fracture risk. Fracture risk approximately doubles for each 1.0 standard deviation (SD) in individual's hip or spine bone mineral density is below the average value of young normal subjects. The World Health Organization (WHO) has defined T-scores of -1.0 to -2.5 as diagnostic of low bone mass (OSTEOPENIA), and T-scores of -2.5 or lower to be diagnostic of OSTEOPOROSIS, based on the site of lowest bone density. Note that there will be a change in reporting format and reference databases as patients move from the younger population (group A) to the older population (group B) The National Osteoporosis Foundation (www.nof.org) recommends adequate intake of calcium and vitamin D and regular weight-bearing exercise in all patients. They recommend pharmacologic treatment in postmenopausal women and men age 50 and older presenting with any of the followin) Osteoporosis, after appropriate evaluation to exclude secondary causes. 2) A hip or vertebral (clinical or radiographic) fracture, regardless of the bone density. 3) Low bone mass (Osteopenia) and one or more of: other prior fractures, secondary causes associated with high risk of fracture (such as glucocorticoid use or total immobilization), or computed high risk of fracture (10-yr probability of hip fracture >= 3% or a 10-yr probability of any major osteoporosis-related fracture >= 20% based on the [place].-adapted WHO algorithm), available at http://www.shef.ac.uk/FRAX). The radiology attending physician has personally reviewed this study, and had reviewed and/or edited this written report and agrees with it. Electronically signed by: Claudia Rich M.D. Narrative 07/05/2023 4:42 PM LUMBER SCALER BONE DENSITOMETRY OF THE SPINE AND HIP DATE OF STUDY: 07/05/2023 HISTORY: 78-year-old postmenopausal woman with breast cancer. She is being treated with vitamin D. Evaluate bone mineral density. Additional risk factors for fracture: previous fracture. FINDINGS (SPINE): The bone mineral density of L1, L3, L4 was assessed by dual-energy x-ray absorptiometry. The average bone mineral density within this region is 0.866 gm/sq-cm. This is 1.0 standard deviations above the mean of the average bone mineral density for age- and gender-matched subjects (the Z-score). It is 1.7 standard deviations below the mean peak bone mineral density in young adults (the T-score). FINDINGS (FEMORAL NECK): The bone mineral density of the left femoral neck was assessed by dual-energy x-ray absorptiometry. The average bone mineral density within the femoral neck region is 0.623 gm/sq-cm. This is 0.2 standard deviations above the mean of the average bone mineral density for age- and gender-matched subjects (the Z-score). It is 2.0 standard deviations below the mean peak bone mineral density in young adults (the T-score). FINDINGS (TOTAL HIP): The bone mineral density of the left hip was assessed by dual-energy x-ray absorptiometry. The average bone mineral density within the total hip region is 0.735 gm/sq-cm. This is 0.3 standard deviations above the mean of the average bone mineral density for age- and gender-matched subjects (the Z-score). It is 1.7 standard deviations below the mean peak bone mineral density in young adults (the T-score). SUMMARY OF CURRENT RESULTS: Region BMD T-score Z-score AP Spine (L1, L3, L4) 0.866 -1.7 1.0 Femoral Neck (Left) 0.623 -2.0 0.2 Total Hip (Left) 0.735 -1.7 0.3 COMPARISON WITH PREVIOUS RESULTS Region Age BMD T-score BMD Change BMD Change Exam Date g/cm2 vs Baseline vs Previous AP Spine (L1,L3-L4) 07/05/2023 78 0.866 -1.7 -0.7% -0.7% 07/12/2021 76 0.872 -1.6 Femoral Neck(Left) 07/05/2023 78 0.623 -2.0 -8.6%* -8.6%* 07/12/2021 76 0.682 -1.5 Total Hip(Left) 07/05/2023 78 0.735 -1.7 -6.4%* -6.4%* 07/12/2021 76 0.785 -1.3 *Denotes significance at 95% confidence level Procedure Note Claudia Rich MD - 07/05/2023 BONE DENSITOMETRY OF THE SPINE AND HIP DATE OF STUDY: 07/05/2023 HISTORY: 78-year-old postmenopausal woman with breast cancer. She is being treated with vitamin D. Evaluate bone mineral density. Additional risk factors for fracture: previous fracture. FINDINGS (SPINE): The bone mineral density of L1, L3, L4 was assessed by dual-energy x-ray absorptiometry. The average bone mineral density within this region is 0.866 gm/sq-cm. This is 1.0 standard deviations above the mean of the average bone mineral density for age- and gender-matched subjects (the Z-score). It is 1.7 standard deviations below the mean peak bone mineral density in young adults (the T-score). FINDINGS (FEMORAL NECK): The bone mineral density of the left femoral neck was assessed by dual-energy x-ray absorptiometry. The average bone mineral density within the femoral neck region is 0.623 gm/sq-cm. This is 0.2 standard deviations above the mean of the average bone mineral density for age- and gender-matched subjects (the Z-score). It is 2.0 standard deviations below the mean peak bone mineral density in young adults (the T-score). FINDINGS (TOTAL HIP): The bone mineral density of the left hip was assessed by dual-energy x-ray absorptiometry. The average bone mineral density within the total hip region is 0.735 gm/sq-cm. This is 0.3 standard deviations above the mean of the average bone mineral density for age- and gender-matched subjects (the Z-score). It is 1.7 standard deviations below the mean peak bone mineral density in young adults (the T-score). SUMMARY OF CURRENT RESULTS: Region BMD T-score Z-score AP Spine (L1, L3, L4) 0.866 -1.7 1.0 Femoral Neck (Left) 0.623 -2.0 0.2 Total Hip (Left) 0.735 -1.7 0.3 COMPARISON WITH PREVIOUS RESULTS Region Age BMD T-score BMD Change BMD Change Exam Date g/cm2 vs Baseline vs Previous AP Spine (L1,L3-L4) 07/05/2023 78 0.866 -1.7 -0.7% -0.7% 07/12/2021 76 0.872 -1.6 Femoral Neck(Left) 07/05/2023 78 0.623 -2.0 -8.6%* -8.6%* 07/12/2021 76 0.682 -1.5 Total Hip(Left) 07/05/2023 78 0.735 -1.7 -6.4%* -6.4%* 07/12/2021 76 0.785 -1.3 *Denotes significance at 95% confidence level IMPRESSION: 1. The bone mineral density of the lumbar spine is mildly decreased. There has been no significant change in bone mineral density since the baseline examination of 07/12/2021. 2. The bone mineral density of the left femoral neck is mildly decreased. There has been a statistically significant decrease in bone mineral density since the baseline examination of 07/12/2021. 3. The bone mineral density of the left total hip is mildly decreased. There has been a statistically significant decrease in bone mineral density since the baseline examination of 07/12/2021. 4. Overall, the above findings are diagnostic of low bone mass (osteopenia) by WHO criteria. 5. Based on the FRAX fracture risk model, the 10-year probability for major osteoporotic fracture is 21% and that for hip fracture is 5.5%. This 10-year fracture risk estimate was calculated using the risk factors noted in the history above, along with the femoral neck bone density. FRAX is intended to help guide treatment decisions in men over age 50 and postmenopausal women with low bone mass (osteopenia). The National Osteoporosis Foundation (NOF) recommends that FDA-approved medical therapies be considered in postmenopausal women and men age 50 years and older with osteoporosis and those with low bone mass whose 10-year fracture probability by FRAX is >= 20% for major osteoporotic fracture or >= 3% for hip fracture. However, all treatment decisions require clinical judgment and consideration of individual patient factors, including patient preferences, comorbidities, previous drug use, risk factors not captured in the FRAX model (e.g., frailty, falls, vitamin D deficiency, increased bone turnover, interval significant decline in bone density) and possible under- or overestimation of fracture risk by FRAX. General comments regarding interpretation of bone density measurements: A) In children, premenopausal woman and males under age 50 not at increased risk for fractures only Z-scores, not T-scores are used to indicate risk. A Z-score above -2.0 is defined as within the expected range for age and Z-score at or less than -2.0 is below the expected range for age. A Z-score below the expected range for age in a patient with recent fractures and/or chronic corticosteroid treatment is consistent with a diagnosis of osteoporosis. B) In post menopausal women and males over 50, comparison of the measured bone mineral density with the average value in young normal subjects (the T-score) has been found to be useful in assessing fracture risk. Fracture risk approximately doubles for each 1.0 standard deviation (SD) in individual's hip or spine bone mineral density is below the average value of young normal subjects. The World Health Organization (WHO) has defined T-scores of -1.0 to -2.5 as diagnostic of low bone mass (OSTEOPENIA), and T-scores of -2.5 or lower to be diagnostic of OSTEOPOROSIS, based on the site of lowest bone density. Note that there will be a change in reporting format and reference databases as patients move from the younger population (group A) to the older population (group B) The National Osteoporosis Foundation (www.nof.org) recommends adequate intake of calcium and vitamin D and regular weight-bearing exercise in all patients. They recommend pharmacologic treatment in postmenopausal women and men age 50 and older presenting with any of the followin) Osteoporosis, after appropriate evaluation to exclude secondary causes. 2) A hip or vertebral (clinical or radiographic) fracture, regardless of the bone density. 3) Low bone mass (Osteopenia) and one or more of: other prior fractures, secondary causes associated with high risk of fracture (such as glucocorticoid use or total immobilization), or computed high risk of fracture (10-yr probability of hip fracture >= 3% or a 10-yr probability of any major osteoporosis-related fracture >= 20% based on the [place].-adapted WHO algorithm), available at http://www.shef.ac.uk/FRAX). The radiology attending physician has personally reviewed this study, and had reviewed and/or edited this written report and agrees with it. Electronically signed by: Claudia Rich M.D. Cooper Cintron MD IMG DXA PROCEDURES Ebony l Result from Last 3 Months or Most Recently Relevant to Health Maintenance Insurance MEDICARE [facility] INSURANCE MEDICARE Member Subscriber Plan / Payer (Ef fective 2009-Present) Name:Andry Gutierrezamelie Sheridan Member ID:[id number] Relation to Subscriber:Self Name:Marybeth Gutierrez Subscriber ID:[id number] Payer ID:[id number] Group ID:Not on file Type:MEDICARE TRADITIONAL Address: [place] [id number] [facility] MEDICARE [employer] INSURANCE MEDICARE [employer] INSURANCE Advance Directives For more information, please contact: [phone] * Full Code (Latest Code Status on File) Date Activated Date Inactivated Comments 12/24/2023 10:06 AM 12/24/2023 4:46 PM * Full Code Date Activated Date Inactivated Comments 10/31/2023 3:22 PM 11/01/2023 4:30 PM Care Teams Collision Repairer Relationship Specialty Start Date End Date Cooper Cintron MD PCP - General Endocrinology Diabetes & Metabolism 05/30/21
--- OUTSIDE RECORDS SUMMARY | 2025-03-09 12:17 | XMS_ITS | Clinical Summary ---
Author Organization [facility] [employer] Address [address] [place] [address] Care Team Providers Care Architect Intern Name Role Phone Barron Santana MD Primary Care Provider Source Comments [facility] [employer],non-owned Affiliates and Associated Physician Practices is amultiple site organization consisting of ambulatory clinics and hospital sitesin [place], [place], [place] and [place]. This disclosure is being madepursuant to the Care Everywhere program and may not contain all information available regarding this patient. Last updated 18.[facility] [employer] Allergies No known active allergies Medications * Be aware that medications may not be up to date on this document. Alwaysverify current medications with the patient. pravastatin (PRAVACHOL) 40 MG tablet Take 40 mg by mouth at bedtime Active methocarbamol (ROBAXIN) 750 MG tablet Take 750 mg by mouth every 6 hours as needed for Muscle Spasms Active Social History Tobacco Use Types Packs/Day Years Used Date Smoking Tobacco: Never Smokeless Tobacco: Never Comments No Sex and Gender Information Value Date Recorded Sex Assigned at Not on file Legal Sex Female 1:47 PM CDT Gender Identity Not on file Sexual Orientation Not on file Last Filed Vital Signs Vital Sign Reading Time Taken Comments Blood Pressure - - Pulse 65 11/19/2018 3:40 PM CDT Temperature 36.7 C (98.1 F) 11/19/2018 3:40 PM CDT Respiratory Rate 16 11/19/2018 3:40 PM CDT Oxygen Saturation 98% 11/19/2018 3:40 PM CDT Inhaled Oxygen Concentration - - Weight 85.3 kg (188 lb) 11/19/2018 3:40 PM CDT Height 160 cm (5' 3) 11/19/2018 3:40 PM CDT Body Mass Index 33.3 11/19/2018 3:40 PM CDT Plan of Treatment Health Maintenance Due Date Last Done Comments BONE DENSITY TESTING 1945 MEDICARE AWV 12 MONTHS 1945 DTAP/TDAP/TD VACCINES (1 - Tdap) 1963 PNEUMOCOCCAL VACCINE 50+ (1 of 1 - PCV) 1994 ZOSTER VACCINE (1 of 2) 1994 Respiratory Syncytial Virus (RSV) Vaccine Pt: or over 60 yrs (1 - 1-dose 75+ series) 2019 COVID-19 VACCINE ( - 2023-2 5 season) 2024 DEPRESSION SCREENING 07/01/2024 INFLUENZA VACCINE (#1) 2025 HEPATITIS B VACCINE Aged Out No longe r eligible based on patient's age to complete this topic HIB VACCINE Aged Out No longer eligi ble based on patient's age to complete this topic HPV VACCINE Aged Out No longer eligi ble based on patient's age to complete this topic MENINGOCOCCAL (Group B) VACC INE SHARED DECISION-MAKING Aged Out No longer eligibl e based on patient's age to complete this topic MENINGOCOCCAL GROUPS A/C/Y/W VACCINE Aged Out No longer eligible b ased on patient's age to complete this topic Insurance MEDICARE MEDICARE MEDICARE SUPPLEMENT [employer] Care Teams Architect Intern Relationship Specialty Start Date End Date Barron Santana MD PCP - General 09/07/20
--- OUTSIDE RECORDS SUMMARY | 2025-03-09 12:17 | XMS_ITS | Encounter Summary ---
Author Organization [facility] Address [address] [place] [address] Care Team Providers Care Outcomes Manager Name Role Phone Barron Santana MD Primary Care Provider [phone] Encounter Details Date Type Department Care Team (Late st Contact Info) Description 10/26/2024 Lab Requisition [facility] - DermPath Lab [address] [place] [id number] Sherly Liu DO [address] [place] [address] Social History Tobacco Use Types Packs/Day Years Used Date Smoking Tobacco: Never Smokeless Tobacco: Never Comments No Sex and Gender Information Value Date Recorded Sex Assigned at Not on file Legal Sex Female 1:47 PM CDT Gender Identity Not on file Sexual Orientation Not on file documented as of this encounter Plan of Treatment Not on file documented as of this encounter Procedures Procedure Name Priority Date/Time Associated Diagnosis Comments DERMATOPATHOLOGY Routine 10/26/2024 10:3 1 AM CDT documented in this encounter Results * DERMATOPATHOLOGY (10/26/2024 10:31 AM CDT) Case Report Dermatopathology Report Case: [id number] Authorizing Provider: Sherly Liu DO Collected: 10/26/2024 10:31 AM Ordering Location: [facility] - Received: 10/27/2024 09:26 AM DermPath Lab Pathologist: Mari Valenzuela MD Specimen: Skin, right anterior leg 5:03 PM CDT DERMATOPATHOLOGY LABORATORY Final Diagnosis Specimen A. SKIN, right anterior leg: BASAL CELL CARCINOMA, SUPERFICIAL MULTIFOCAL (C44.712) 5:03 PM CDT DERMATOPATHOLOGY LABORATORY at 1703 CDT Clinical History R/O NMSC 5:03 PM CDT DERMATOPATHOLOGY LABORATORY Gross Description Specimen A: Received is one formalin filled container labeled with the patient's name and designated right anterior leg. The specimen consists of a shave biopsy measuring 5x5x1 mm. Jar 0. 5:03 PM CDT DERMATOPATHOLOGY LABORATORY Microscopic Description Specimen A. SKIN, right anterior leg: Attached to the undersurface of the epidermis, there are small aggregates of basaloid cells with a high nuclear to cytoplasmic ratio and peripheral palisading. 5:03 PM CDT DERMATOPATHOLOGY LABORATORY Disclaimer An external and internal positive and negative controls are appropriate for the histochemical, immunohistochemical and immunofluorescence stain(s) in this case (if any), except where stated explicitly. The performance characteristics of the stain(s) cited in this report were developed and its performance characteristic determined by the Dermatopathology Laboratory at [facility], directed by Dr. Amber White. These tests need not be, and therefore are not, approved by the [place] Food and Drug Administration. The tests are used for clinical purposes. Billing Codes Specimen Charges Stain Charges 46569 1 5:03 PM CDT DERMATOPATHOLOGY LABORATORY Embedded Images 5:03 PM CDT DERMATOPATHOLOGY LABORATORY Pathology/Cytolo gy TISSUE SPECIMEN FROM SKIN / Unknown 10/26/2024 10:31 AM CDT 10/27/2024 9:26 AM CDT us Sherly Liu DO LAB - PATHOLOGY/CYTOLOGY ORDERABLES Final Result DERMATOPATHOLOGY LABORATORY [facility] - Department of Dermatology [address] [phone] documented in this encounter Visit Diagnoses Not on filedocumented in this encounter Care Teams Outcomes Manager Relationship Specialty Start Date End Date Barron Santana MD PCP - General 09/07/20 documented as of this encounter
== END 2025-03-09 10:30 | disposition home or self-care (01) ==
PROVIDERS: PCP Internal Medicine; Visit Provider Urology
DX: N20.0 Calculus of kidney (principal)
CPT/HCPCS: 74018